=== PATIENT | male | born 1955 | race Caucasian/White ===

== ENCOUNTER → 2022-07-20 | Outpatient (CLI) | payer OTHER ==
[2022-07-20 18:18] LABS: African American GFR (CKD) >90 (>60 ml/min/1.73 sqM); Blood Urea Nitrogen 10 mg/dL (9-20); Non-African American GFR(CKD) >90 (>60 ml/min/1.73 sqM)
--- NOTE | 2022-07-21 07:48 | CT ---
EXAMINATION TYPE: CT chest w con DATE OF EXAM: 07/20/2022 COMPARISON: None HISTORY: SOLITARY PULMONARY NODULE CT DLP: 245.0 mGycm Automated exposure control for dose reduction was used. CONTRAST: CT scan of the chest is performed with IV Contrast, patient injected with 100ml mL of Isovue 300. FINDINGS: LUNGS: Groundglass nodular density right lower lobe measuring 9.3 mm image 22. Additional groundglass nodular density right upper lobe measuring 6 mm image 10. Solid nodule right lower lobe measuring 1. 1 cm image 54. No additional nodules seen. Ript-it-fzwcfmre emphysematous change noted. No focal cons olidation. No evidence of pleural effusion. MEDIASTINUM: There are no greater than 1 cm hilar or mediastinal lymph nodes. No pericardial effusi on is seen. Thoracic aorta is of normal caliber. The heart is not enlarged. UPPER ABDOMEN: No significant abnormality appreciated. OTHER: No additional significant abnormality is seen. IMPRESSION: 1. Solid pulmonary nodule right lower lobe measuring 1.[address] recommended. 2. Additional groundglass nodules right lung could be postinflammatory in nature. Appropriate follow- up is advised.
== END | disposition home or self-care (01) ==
LOC: RADCTMAIN 17:34
PROVIDERS: ATTEND Family Medicine
DX: R91.8 Other nonspecific abnormal finding of lung field (principal)
CPT/HCPCS: 82565; 84520; 71260; 36415; Q9967

== ENCOUNTER → 2022-08-05 | Outpatient (CLI) | payer OTHER ==
--- NOTE | 2022-08-06 11:56 | PE ---
EXAMINATION TYPE: PET CT fusion skull to thigh DATE OF EXAM: 08/05/2022 CLINICAL INDICATION:Male, 66 years old with history of R91.1 Lung Nodule; TECHNIQUE: Following the intravenous administration of 10.2 mCi of F-18 FDG, whole body images are performed from the skull base to the midthigh. Images are reviewed on the computer in the coronal, a xial, and sagittal planes. Reconstructed rotating images are created on independent workstation and reviewed on the computer. A non-contrast CT is performed in conjunction with the PET scan. Glucose level 88 mg/dL COMPARISON: CT 07/20/2022, PET/CT None, FINDINGS: Mediastinal SUV mean is 1.3. Hepatic parenchyma SUV mean is 2.1. SKULL BASE AND NECK: No suspicious FDG activity. Focal radiotracer uptake max SUV 3.6 just posterior to the parotid gland on the left. CHEST, MEDIASTINUM, AND HILAR REGION: * Right lower lobe 1.1 cm pulmonary nodule Max SUV 1.0. * Right upper lobe nodular-like area with max SUV 0.9. * No suspicious FDG activity identified. ABDOMEN AND PELVIS: No suspicious FDG activity. OSSEOUS STRUCTURES: No suspicious FDG activity. OTHER CT: Mild atherosclerosis of the arterial vasculature. IMPRESSION: 1. No suspicious FDG activity within the right lower lobe pulmonary nodule. Continued attention on C T follow-up imaging and/or tissue sampling. 2. Nonspecific radiotracer uptake posterior to the left parotid gland consider dedicated thyroid ult rasound.
== END | disposition home or self-care (01) ==
LOC: RADPETMAIN 10:01
PROVIDERS: ATTEND Internal Medicine
DX: R91.1 Solitary pulmonary nodule (principal)
CPT/HCPCS: 78815; A9552

== ENCOUNTER → 2022-08-24 | Outpatient (CLI) | payer OTHER ==
--- NOTE | 2022-08-24 15:59 | US ---
EXAMINATION TYPE: US thyroid st tissue head/neck DATE OF EXAM: 08/24/2022 COMPARISON: CT chest July 20, 2022 CLINICAL HISTORY: R94.6 ABNORMAL RESULTS OF THYROID FUNCTION STUDIES. Abnormal thyroid function GLAND SIZE: Right Lobe: 5.1 x 2.1 x 1.7 cm Overall Parenchyma: homogenous Left Lobe: 4.2 x 1.6 x 1.4 cm Overall Parenchyma: homogeneous Isthmus Thickness: 0.3 cm NODULES RIGHT: # of nodules measured on right: 0 LEFT: # of nodules measured on left: 0 ISTHMUS: # of nodules measured in the isthmus: 0 Bilateral neck scanned, no evidence of lymphadenopathy. Homogeneous normal-sized thyroid without discrete nodule. The findings correlate with recent CT. IMPRESSION: As above.
== END | disposition home or self-care (01) ==
LOC: RADUSWWP 14:49
PROVIDERS: ATTEND Internal Medicine
DX: R94.6 Abnormal results of thyroid function studies (principal)
CPT/HCPCS: 76536

== ENCOUNTER → 2023-01-30 | Outpatient (CLI) | payer OTHER ==
[2023-01-30 16:18] LABS: African American GFR (CKD) >90 (>60 ml/min/1.73 sqM); Blood Urea Nitrogen 10 mg/dL (9-20); Non-African American GFR(CKD) >90 (>60 ml/min/1.73 sqM)
--- NOTE | 2023-01-31 11:58 | CT ---
EXAMINATION TYPE: CT chest w con CT DLP: 223.90 mGycm, Automated exposure control for dose reduction was used. DATE OF EXAM: 01/30/2023 5:24 PM COMPARISON: CT chest 07/20/2022, PET/CT 08/05/2022 CLINICAL INDICATION:Male, 67 years old with history of R91.8; , f/u lung nodule TECHNIQUE: Multiple axial images were obtained through the chest. Sagittal and coronal reformats were created for review. Contrast used:100 mL of Isovue 300 with IV Contrast Oral contrast used: none. FINDINGS: LUNGS/ PLEURA: Similar right lower lobe 11 mm pulmonary nodule. Right upper lobe groundglass opacity a mildly increased in density on today's exam. This area measures up to 13 x 7 mm. There is parasepta l and centrilobular emphysema changes. No additional pulmonary nodules visualized. AIRWAY: Patent and unremarkable. HEART: Size within normal limits. MEDIASTINUM: No gross evidence of adenopathy. VASCULATURE: No aortic aneurysm. MUSCULOSKELETAL: No acute osseous abnormalities SOFT TISSUES/LYMPH NODES: Unremarkable. LOWER NECK: No significant findings. UPPER ABDOMEN: No significant findings. IMPRESSION: 1. Stable right lower lobe 11 mm pulmonary nodule which did not demonstrate FDG activity on prior PE T. 2. Right upper lobe groundglass opacity appears mildly larger on today's exam. Continued attention o n follow-up imaging in 6-12 months. 3. Mild emphysema changes.
== END | disposition home or self-care (01) ==
LOC: RADCTMAIN 15:32
PROVIDERS: ATTEND Internal Medicine
DX: J43.2 Centrilobular emphysema (principal); R91.8 Other nonspecific abnormal finding of lung field
CPT/HCPCS: 82565; 84520; 71260; 36415; Q9967

== ENCOUNTER → 2023-08-22 | Outpatient (CLI) | payer OTHER ==
[2023-08-22 18:38] LABS: African American GFR (CKD) >90 (>60 ml/min/1.73 sqM); Blood Urea Nitrogen 10 mg/dL (9-20); Non-African American GFR(CKD) >90 (>60 ml/min/1.73 sqM)
--- NOTE | 2023-08-22 19:10 | CT ---
EXAMINATION TYPE: CT chest w con CT DLP: 245.5 mGycm, Automated exposure control for dose reduction was used. DATE OF EXAM: 08/22/2023 6:54 PM COMPARISON: 01/30/2023, 07/20/2022 CT chest, PET/CT 08/05/2022 CLINICAL INDICATION:Male, 67 years old with history of R91.1 ABNORMAL LUNG FIELD; PHH, f/u nodules TECHNIQUE: Multiple axial images were obtained through the chest. Sagittal and coronal reformats were created for review. Contrast used:100 mL of Isovue 300 with IV Contrast (None if empty) Oral contrast used: (None if empty) FINDINGS: LUNGS/ PLEURA: Paraseptal and centrilobular emphysema changes are seen throughout the lungs. Right upper lung nodule measuring 4 mm series 3 image 12, more laterally measuring 4 mm image 10. Posteriorly inferiorly right upper lobe nodule measuring 10 x 9 mm image 23 which appears more solid compared to 01/22/2023. And 07/20/2022. Right middle lobe 2-3 mm pulmonary nodule image 59. Right lower lobe 12 mm pulmonary nodule image 55. Consolidation, pneumothorax or pleural effusion. AIRWAY: Patent and unremarkable. HEART: Size within normal limits. MEDIASTINUM: No gross evidence of adenopathy. VASCULATURE: No aortic aneurysm. MUSCULOSKELETAL: No acute osseous abnormalities SOFT TISSUES/LYMPH NODES: Unremarkable. LOWER NECK: No significant findings. UPPER ABDOMEN: No significant findings. IMPRESSION: Scattered pulmonary nodules most suspicious of which is the right upper lung nodule which is more inf eriorly located and is more solid on today's exam. A right lower lobe pulmonary nodule appears stable . Findings for the right upper lobe pulmonary nodule are now suspicious for malignancy. Consider foll ow-up PET/CT and robotic tissue sampling.
== END | disposition home or self-care (01) ==
LOC: RADCTMAIN 17:18
PROVIDERS: ATTEND Internal Medicine
DX: R91.8 Other nonspecific abnormal finding of lung field (principal)
CPT/HCPCS: 82565; 84520; 71260; 36415; Q9967

== ENCOUNTER → 2023-10-18 | Outpatient (CLI) | payer OTHER ==
--- NOTE | 2023-10-22 23:44 | PE ---
EXAMINATION TYPE: PET CT fusion skull to thigh DATE OF EXAM: 10/18/2023 COMPARISON: 08/22/2023 CT chest Prior PET/CT: 08/05/2022 HISTORY: Multiple lung nodules TECHNIQUE: Following the intravenous administration of 12.06 mCi of F-18 FDG, whole body images are performed from the skull base to the midthigh. Images are reviewed on the computer in the coronal, a xial, and sagittal planes. Reconstructed rotating images are created on independent workstation and reviewed on the computer. A localization and attenuation correction CT is performed in conjunction with the PET scan. DLP: 255.28 mGycm SCAN: Reported as initial. Blood glucose: 89 mg/dL Average Mediastinum SUV: 2.05 Average Liver SUV: 2.5 FINDINGS: NECK: There is a focus of radiotracer in the post left auricular region, image 25, SUV 6.73. THORAX: There is some uptake within a small nodule posterior right upper lung field. Image 92, SUV 1. 18. This may be below the threshold for size for identification. There is some right hilar adenopathy with mild uptake, image 101 SUV 4.18, image 100, SUV 3.32. A rig ht infrahilar lymph node may have some mild uptake, image 107 image 3.23. Infrahilar lymph node on th e right image 116 has SUV of 4.7. No suspicious uptake within the posterior lateral right lung base nodule, image 108, SUV 0.94. ABDOMEN: No abnormal uptake PELVIS: No abnormal uptake OSSEOUS STRUCTURES: There is some uptake within the midthoracic spine vertebral body, image 116, SUV 2.47. LOCALIZATION CT: No suspicious new findings COMPARISON: Faint uptake within the posterior right lung density is increased in SUV over the interva l from 0.83 over the interval. Adenopathy is increased over the interval. IMPRESSION: 1. Uptake within the posterior right upper lung field is increasing but may remain below the threshol d for a suspicious level. 2. The mediastinal and hilar lymphadenopathy appears to be increasing and appears to be within the ra nge for potential neoplasm.. 3. Posterior to the left ear there is a suspicious abnormal intense uptake. Additional workup of this area is recommended.
== END | disposition home or self-care (01) ==
LOC: RADPETMAIN 14:41
PROVIDERS: ATTEND Internal Medicine
DX: R91.8 Other nonspecific abnormal finding of lung field (principal); R59.0 Localized enlarged lymph nodes
CPT/HCPCS: 78815; A9552

== ENCOUNTER → 2024-02-20 | Outpatient (CLI) | payer OTHER ==
[2024-02-20 14:58] LABS: African American GFR (CKD) >90 (>60 ml/min/1.73 sqM); Blood Urea Nitrogen 14 mg/dL (9-20); Non-African American GFR(CKD) >90 (>60 ml/min/1.73 sqM)
--- NOTE | 2024-02-24 22:27 | CT ---
EXAMINATION TYPE: CT chest w con DATE OF EXAM: 02/20/2024 COMPARISON: 08/22/2023, 10/18/2023, 07/20/2022 HISTORY: 68-year-old male R91.8, abnormal lung regan, f/u nodules TECHNIQUE: Contiguous axial scanning of the chest after the administration of 100ml mL of Isovue 300. Coronal/sagittal reconstructions performed. CT DLP: 218.9mGycm. Automatic exposure control utilized for a dose reduction. FINDINGS: The heart is normal size without pericardial effusion. Ectatic aortic root at 3.8 cm. Conventional arch vessel branching anatomy. Stable enlarged 1.8 cm right hilar lymph node. Given stability, a benign reactive etiology is favored . Other smaller hilar nodes remain unchanged as does a right bronchial lymph node measuring 1.2 cm. Moderate centrilobular emphysema. Biapical pleural-parenchymal scarring. * Some groundglass nodularity posterior right apex and 4 mm subpleural nodularity both remain unchan ged. * A 1.1 cm posterior right basilar pulmonary nodule remains unchanged. Previous PET CT showed no hyp ermetabolism here. * An irregular nodule posterior right midlung in the upper lobe measures 2.0 x 1.6 cm. * This is in comparison to: * 2.0 x 1.5 cm on 08/22/2023, * 1.2 x 1.4 cm on 07/20/2022. No consolidation or pleural effusion. Visualized upper abdomen shows gastric fold thickening which may partly be due to nondistention. 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 IMPRESSION: 1. Osteopenia with moderate emphysema. The 2.0 cm posterior right midlung pulmonary nodule remains ribera spicious for neoplasm. It has clearly enlarged compared to older priors such as 07/20/2022 where it me asured 1.4 cm but remains relatively unchanged from more recent priors. Continue close surveillance i f no intervention at this time. 2. A 1.1 cm right basilar pulmonary nodule is unchanged, suspected benign given lack of FDG uptake on prior PET. Attention on ongoing follow-up. 3. Hilar adenopathy measuring up to 1.8 cm remains unchanged back to 2021 probably reactive/post infl ammatory. Ongoing follow-up recommended. 4. Gastric fold thickening; correlate for any symptoms of gastritis.
== END | disposition home or self-care (01) ==
LOC: RADCTMAIN 14:19
PROVIDERS: ATTEND Internal Medicine
DX: J43.2 Centrilobular emphysema (principal); K31.89 Other diseases of stomach and duodenum; M85.80 Other specified disorders of bone density and structure, unspecified site; R91.8 Other nonspecific abnormal finding of lung field; R59.0 Localized enlarged lymph nodes
CPT/HCPCS: 82565; 84520; 71260; 36415; Q9967

== ENCOUNTER 2024-03-20 06:26 | Day surgery (SDC) | payer OTHER ==
[2024-03-18 09:15] VITALS: BMI 20.9
[~2024-03-20 06:26] MED LIST: LACTATED RINGERS 1,000 ML IV SCH
[2024-03-20] MEDS ORDERED: LACTATED RINGERS 1,000 ML IV SCH (06:30)
[2024-03-20] MEDS ORDERED: LIDOCAINE 1% (10MG/ML) FOR IV START INTRADERMA PRN (06:30)
[2024-03-20] MEDS ORDERED: MIDAZOLAM 2 MG/2 ML VIAL IV PRN (07:00)
[2024-03-20] MEDS: LACTATED RINGERS 1,000 ML IV ONE (07:09)
[2024-03-20] MEDS: DEXAMETHASONE SOD PHOSPHATE 4 MG/ML 1 ML VIAL IV ONE (07:22)
[2024-03-20] MEDS: ONDANSETRON 4 MG/2 ML VIAL IVP ONE (07:22)
[2024-03-20] MEDS ORDERED: MIDAZOLAM 2 MG/2 ML VIAL ONE (07:57)
[2024-03-20] MEDS ORDERED: ePHEDrine 50 MG/ML 1 ML VIAL ONE (07:57)
[2024-03-20] MEDS ORDERED: ROCURONIUM 10 MG/ML (5 ML VIAL) IV ONE (07:57)
[2024-03-20] MEDS ORDERED: LIDOCAINE 2% (PF) 20 MG/ML 5 ML VIAL ONE (07:57)
[2024-03-20] MEDS ORDERED: GLYCOPYRROLATE 0.2 MG/ML 2 ML VIAL ONE (07:57)
[2024-03-20] MEDS ORDERED: NEOSTIGMINE 1 MG/ML 10 ML VIAL ONE (07:57)
[2024-03-20] MEDS ORDERED: WATER FOR INJECTION, STERILE 10 ML VIAL IV ONE (07:57)
[2024-03-20] MEDS ORDERED: SUCCINYLCHOLINE CHLORIDE 200 MG/10 ML VIAL IV ONE (07:57)
[2024-03-20] MEDS ORDERED: PHENYLEPHRINE-0.9% NACL SYG 1,000 MCG/10 ML SYRINGE ONE (07:57)
[2024-03-20] MEDS ORDERED: fentaNYL (PF) 50 MCG/ML 2 ML AMP ONE (07:57)
[2024-03-20] MEDS ORDERED: PROPOFOL 10 MG/ML 20 ML VIAL IV ONE (07:57)
--- NOTE | 2024-03-20 10:13 | P.PCN ---
Date of Procedure: 03/20/24 Operative Findings: Operative Findings: Preoperative Diagnosis: Right upper lobe pulmonary nodule, enlarging, 20x16 mm, PET Avid, SUV 1.1 Right lower lobe pulmonary nodule, stable, 11mm, PET non avid Mediastinal lymphadenopathy Postoperative Diagnosis: Right upper lobe pulmonary nodule, enlarging Right lower lobe pulmonary nodule, stable Mediastinal lymphadenopathy Procedure(s) Performed: Flexible bronchoscopy Robotic-assisted bronchoscopy and addition to radial ultrasound evaluation of the right upper lobe pulmonary lobe Robotic-assisted transbronchial needle aspirate, transbronchial biopsies and transbronchial brushing of a right upper lobe pulmonary nodule in addition to a bronchioloalveolar lavage Robotic-assisted transbronchial needle aspirate and transbronchial biopsy of a right lower lobe pulmonary nodule Endobronchial ultrasound TBNA of the station 7 and 10R lymph nodes Anesthesia: MEKAA Surgeon: Justice Ca Estimated Blood Loss (ml): 0 Pathology: other Condition: stable Disposition: same day Operative Findings: A physical exam was performed. Informed consent was obtained from the patient after explaining all the risks (pneumothorax, life threatening bleeding, infection and adverse effects due to medications), benefits and alternatives to the procedure which the patient appeared to understand and so stated. The patient was connected to the monitoring devices. General anesthesia was induced and the patient was intubated by anesthesia. A final timeout was performed and the procedure confirmed by the attending staff bronchoscopist. The bronchoscope was inserted and the airway examined. Examination was essentially within normal limits. Limited respiratory secretions were identified and was suctioned out without any major difficulties. The flexible bronchoscope was removed and the robotic bronchoscope was inserted. Registration was completed. I next guided the robotic bronchoscope using the navigation system into the right posterior segment of the RUL. Once in proper position, the bronchoscope was frozen. The radial EBUS probe was placed through the bronchoscope and confirmed abnormal u/s images vs normal lung. A needle was placed through the working channel and under fluoroscopic guidance, we sampled the area thought to have the mass twice. We then used a cloud biopsy pattern with ultrasound confirmation for 2 additional passes with the needle. U/S evaluation was then used to reconfirm location. Forceps were next introduced through working channel and extended the appropriate distance and 3 transbronchial biopsies were performed using fluoroscopic guidance. The u/s probe was then reinserted to confirm location. When confirmed this process was repeated for a total of 8-10 transbronchial biopsies. After reassessment with EBUS, a brush was placed through the extendable working channel for 1 pass with fluoroscopic guidance. U/S evaluation was then used to confirm location. 40ml of saline was then instilled into the area of the lesion. The robotic bronchoscope was removed and the airway inspected with a flexible bronchoscope and 10 ml of effluent from the BAL was collected. The aspirate was bloody and ultimately declotted and based on that, the sample was discarded. I next guided the robotic bronchoscope using the navigation system into the right lower lobe posterior segment. Once in proper position, the bronchoscope was frozen. The radial EBUS probe was placed through the bronchoscope and confirmed abnormal u/s images vs normal lung. A needle was placed through the working channel and under fluoroscopic guidance, we sampled the area thought to have the mass twice. We then used a cloud biopsy pattern with ultrasound confirmation for 2 additional passes with the needle. U/S evaluation was then used to reconfirm location. Forceps were next introduced through working channel and extended the appropriate distance and 3 transbronchial biopsies were performed using fluoroscopic guidance. The u/s probe was then reinserted to confirm location. When confirmed this process was repeated for a total of 8 transbronchial biopsies. Flex. bronchoscope was inserted and regular suctioning was done. At the completion of the procedure, no residual secretions or bloody material within the airway. The bronchoscope was removed. Endobronchial ultrasound was done with mediastinal lymph node evaluation. A detailed evaluation of the mediastinal lymph nodes was done using endobronchial ultrasound. Based on examination, there was a 10x15 mm subcarinal station 7 lymph nodes , 10x20 mm lymph node in the 11R . Using a 22-gauge vizishot needle, transbronchial needle aspirate of the subcarinal lymph node station 7 and station 11R lymph node was done and a total of 4 passes from the stations was taken. No complications. No bleeding. Right lower lobe Endobronchial ultrasound was removed. Flexible bronchoscope was introduced and have regular suctioning was done and the airway was evacuated from any residual bloody secretions. The flexible bronchoscope was 1 and the patient was extubated and transferred to recovery in stable condition. Chest x-rays to follow. FINDINGS: 1.The airways appeared normal 2 Successful navigation, ultrasonographic identification, and biopsies of right lung pulmonary nodules and previous lymphadenopathy with success lowered sampling of station 7 and station 11 R lymph nodes 3.The the radial ultrasound view was concentric RECOMMENDATIONS: Await pathology and cytology results The referring physician will be alerted to the results when available. The patient was advised to follow up with the referring physician with the biopsy results Patient will be called with results.
[2024-03-20 10:15] VITALS: RESP 16; TEMP 97
--- NOTE | 2024-03-20 11:05 | XR ---
EXAMINATION TYPE: XR chest 1V portable DATE OF EXAM: 03/20/2024 10:23 AM CLINICAL INDICATION:Male, 68 years old with history of POST OP BRONCH; PHH COMPARISON: None TECHNIQUE: XR chest 1V portable Frontal view of the chest. FINDINGS: Lungs/Pleura: There is no evidence of pleural effusion, focal consolidation, or pneumothorax. Pulmonary vascularity: Unremarkable. Heart/mediastinum: Cardiomediastinal silhouette is unremarkable. Musculoskeletal: No acute osseous pathology. IMPRESSION: No evidence for pneumothorax. No acute cardiopulmonary disease/process.
[2024-03-20 11:10] VITALS: BP 126/70; PULSE 51
--- NOTE | 2024-03-20 11:35 | FL ---
EXAMINATION TYPE: FL bronchoscopy DATE OF EXAM: 03/20/[address] HILL DID MULTIPLE SCOPES AND BIOPSIES TO RUQ AND RLQ LUNG. FL TIME 2.296 MINS, DAP 3.2265 Gyc m2. 10 image/s document/s the procedure.
--- NOTE | 2024-03-20 16:50 | CT ---
EXAMINATION TYPE: CT chest wo con DATE OF EXAM: 03/20/2024 COMPARISON: 02/20/2024 HISTORY: ION bronch biopsy lung nodule CT DLP: 334 mGycm. Automated Exposure Control for Dose Reduction was Utilized. TECHNIQUE: CT scan of the thorax is performed without IV contrast. FINDINGS: There are marked emphysematous changes. There are stable small groundglass densities in the right lung apex. The right upper lobe posteriorly there is an ill-defined partially consolidative masslike density. Th e overall dimensions have decreased compared to the prior study however central portion of the densit y appears more masslike and is suspicious for neoplasm. Further evaluation with fine-needle aspiratio n or PET scan is recommended to exclude malignancy. There is a well-circumscribed 12 mm nodule in the right lung base posterolaterally which when compare d to multiple prior CT chest scans is stable. There is a growing left upper lobe nodule which previously measured approximately 5 mm and now measur es 7 mm and clearly is more masslike in appearance. This is also suspicious for neoplasm There is no airspace consolidation . There is no pleural effusion, pleural thickening or pneumothorax. The ascending thoracic aorta is mildly dilated measuring approximately 4 cm. Hilar adenopathy was identified on the prior study but cannot be evaluated on the current study due t o lack of IV contrast material. Limited scanning through the upper abdomen reveals a stable mildly prominent somewhat nodular left ad renal gland. No focal osseous lesions are seen. IMPRESSION: 1. Findings suspicious for neoplasm for nodules in the right upper lobe posteriorly and in the left u pper lobe as described above. Further evaluation is recommended with fine needle aspiration and/or PE T scan. 2. Marked emphysematous changes. 3. Mild aneurysmal dilatation of the ascending thoracic aorta which measures approximately 4 cm.
== END 2024-03-20 11:19 | disposition home or self-care (01) ==
LOC: ORWHC2ENDO 06:26
PROVIDERS: ATTEND Internal Medicine Critical Care Medicine
DX: J84.10 Pulmonary fibrosis, unspecified (principal); I71.21 Aneurysm of the ascending aorta, without rupture; J44.9 Chronic obstructive pulmonary disease, unspecified; F41.9 Anxiety disorder, unspecified; F17.290 Nicotine dependence, other tobacco product, uncomplicated; Z79.899 Other long term (current) drug therapy
CPT/HCPCS: 87798 ×3; 87496; 87498; 87529; 88108; 88305; 88342; 87502; 87634; 88341; 87070; 87205; 87116; 87102; 87206; 87635; 71045; 71250; 31628; 31629; 31623; 31624; 31652; J2250; J0330; J1100; J2710; J2405; J3010; J2704; J2001; J2371; S2900

== ENCOUNTER → 2024-04-04 | Outpatient (CLI) | payer OTHER ==
--- NOTE | 2024-04-04 13:17 | CA ---
Exercise Stress Test Report Name: Rodney Corona Exam Date: 04/04/2024 11:08 Exam Location: [facility] Ht (in): 72 Wt (lb): 155 BSA: 1.91 Ordering Phys: Meng Rivera MD Referring Phys: Miguel Technologist: Jeremie Foy Age: 68 Gender: M : 1955 Procedure CPT: Indications: I20.9 ANGINA PECTORIS, UNSPECIFIED ICD-10 Codes: Patient History: Pre-OP for lung surgery Medications: Meds past 24 hrs: Pretest Chest Pain: STRESS TEST Sha Protocol Exercise Duration (min:sec): 05:[address] Depressions (mm): Angina Score: Zafar Score: Resting HR (bpm): 52 Peak HR (bpm): 111 Resting BP (mmHg): 110 / 80 Peak BP (mmHg): 162 / 59 MPHR: 153 Target HR: 130 % MPHR: 73 METS: 7.1 Total Dose: Peak Dose: Atropine: Double Product: 31409 BP Response: Stress Termination: Dyspnea and leg fatigue Stress Symptoms: Dyspnea Stress Summary: ECG ANALYSIS Resting ECG: Stress ECG: CONCLUSIONS Baseline EKG revealed a normal sinus rhythm without significant ST-T changes. Patient walked on a standard Sha protocol for 5 minutes 44 seconds and achieved a maximum heart rate of 111 bpm. He had fatigue and some discomfort in the leg and shortness of breath and therefore stress test was stopped. There was a lot of artifact and no significant ST segment changes are noted. This is considered a inconclusive stress test with inadequate chronotropic response at nearly 6 minutes of exercise. If ischemia suspected I would recommend a pharmacological stress test probably a Lexiscan study Dr. Nella Cronin MD (Electronically Signed) Final Date: 04 Apr 2024 13:15
== END | disposition home or self-care (01) ==
LOC: RADNMMAIN 10:40
PROVIDERS: ATTEND Thoracic Surgery (Cardiothoracic Vascular Surgery)
DX: Z01.810 Encounter for preprocedural cardiovascular examination (principal); I20.9 Angina pectoris, unspecified; R06.02 Shortness of breath; R53.83 Other fatigue
CPT/HCPCS: 93017

== ENCOUNTER → 2024-04-09 | Outpatient (CLI) | payer MEDICARE, OTHER ==
[2024-04-09 13:52] LABS: Partial Thromboplastin Time 26.5 sec (22.0-30.0)
[2024-04-09 18:28] LABS: Basophils # (A) 0.04 X 10*3/uL (0.00-0.10); Basophils % (A) 0.7 %; Eosinophils # (A) 0.11 X 10*3/uL (0.04-0.35); Eosinophils % (A) 1.8 %; HCT 40.4 % (39.6-50.0); HGB 13.4 g/dL (13.0-17.0); Lymphocytes # (A) 1.84 X 10*3/uL (0.90-5.00); Lymphocytes % (A) 30.7 %; MCH 29.3 pg (27.0-32.0); MCHC 33.2 g/dL (32.0-37.0); MCV 88.2 FL (80.0-97.0); Mean Platelet Volume 10.8 FL (9.5-12.2); Monocytes % (A) 8.3 %; NRBC Per 100 WBC 0 X 10*3/uL (0.00-0.01); Neutrophils # (A) 3.49 X 10*3/uL (1.80-7.70); Neutrophils % (A) 58.2 %; Platelet Count 251 X 10*3/uL (140-440); RBC 4.58 X 10*6/uL (4.40-5.60); RDW 13.3 % (11.5-14.5)
[2024-04-09 19:44] LABS: Blood Urea Nitrogen 7.5 mg/dL (9.0-27.0); Carbon Dioxide 22.6 mmol/L (21.6-31.8); Chloride 104 mmol/L (96-109); Glucose 106 mg/dL (70-110); Potassium 4.1 mmol/L (3.5-5.5); Sodium 137 mmol/L (135-145)
[2024-04-09 19:50] LABS: Appearance,Urine Clear (Clear); Bilirubin,Urine Negative (Negative); Blood,Urine Negative (Negative); Color,Urine Yellow (Yellow); Ketones,Urine Negative (Negative); Nitrite,Urine Negative (Negative); Specific Gravity,Urine 1.014 (1.001-1.030); Urobilinogen,Urine 0.2 E.U./DL
== END | disposition home or self-care (01) ==
LOC: LABPAT 13:11
PROVIDERS: ATTEND Thoracic Surgery (Cardiothoracic Vascular Surgery)
DX: Z01.812 Encounter for preprocedural laboratory examination (principal); C34.11 Malignant neoplasm of upper lobe, right bronchus or lung
CPT/HCPCS: 36415; 80051; 81003; 82565; 82947; 84520; 85025; 85610; 85730; 86850; 86900; 86901; 87086

== ENCOUNTER 2024-04-14 09:14 | Inpatient (IN) | payer OTHER, MEDICARE ==
[2024-04-09 15:31] VITALS: BMI 20.5
[~2024-04-14 09:14] MED LIST changes: +HYDROmorphone 0.5 MG/0.5 ML SYRINGE IVP PRN; -LACTATED RINGERS 1,000 ML IV SCH; +LIDOCAINE 1% (10MG/ML) FOR IV START INTRADERMA PRN; +droPERidol 5 MG/2 ML VIAL IVP ONE
[2024-04-14] MEDS: IV FLUID CONTINUATION 1,000 ML IV ONE ×2 (10:47)
[2024-04-14] MEDS: LACTATED RINGERS 1,000 ML IV SCH (10:49)
[2024-04-14] MEDS: DEXAMETHASONE SOD PHOSPHATE 4 MG/ML 1 ML VIAL IV ONE (11:11)
[2024-04-14] MEDS: ONDANSETRON 4 MG/2 ML VIAL IVP ONE (11:12)
[2024-04-14] MEDS: MIDAZOLAM 2 MG/2 ML VIAL IVP ONE (11:12)
[2024-04-14] MEDS ORDERED: MIDAZOLAM 2 MG/2 ML VIAL ONE (12:11)
[2024-04-14] MEDS ORDERED: NEOSTIGMINE 1 MG/ML 10 ML VIAL ONE (12:11)
[2024-04-14] MEDS ORDERED: ROCURONIUM 10 MG/ML (5 ML VIAL) IV ONE (12:11)
[2024-04-14] MEDS ORDERED: LIDOCAINE 1% INJ 10MG/ML (20 ML MDV) ONE (12:11)
[2024-04-14] MEDS ORDERED: PROPOFOL 10 MG/ML 20 ML VIAL IV ONE (12:11)
[2024-04-14] MEDS ORDERED: GLYCOPYRROLATE 0.2 MG/ML 2 ML VIAL ONE (12:11)
[2024-04-14] MEDS ORDERED: LABETALOL 5 MG/ML VIAL MDV ONE (12:11)
[2024-04-14] MEDS ORDERED: ePHEDrine 50 MG/ML 1 ML VIAL ONE (12:11)
[2024-04-14] MEDS ORDERED: SUCCINYLCHOLINE CHLORIDE 200 MG/10 ML VIAL IV ONE (12:11)
[2024-04-14] MEDS ORDERED: fentaNYL (PF) 50 MCG/ML 2 ML AMP ONE (12:11)
[2024-04-14] MEDS ORDERED: PHENYLEPHRINE-0.9% NACL SYG 1,000 MCG/10 ML SYRINGE ONE (12:11)
[2024-04-14] MEDS ORDERED: HYDROmorphone (PF) 1 MG/ML ONE (12:11)
[2024-04-14] MEDS ORDERED: NALOXONE 0.4 MG/ML 1 ML VIAL IV PRN (12:14)
--- NOTE | 2024-04-14 12:14 | P.ANPRN ---
Procedure Note - Anesthesia - Epidural/Spinal Epidural Time Out Performed: Yes Date of Procedure: 04/14/24 Procedure Start Time: 11:11 Procedure Stop Time: 11:20 Location of Patient: PreOp Indication: Acute Post-Operative Pain, Analgesia, Requested by Surgeon Sedation Type: Sedate with meaningful contact maintained Preparation: Sterile Prep Position: Sitting Catheter: Indwelling Needle Guage: 18 Narrative: Catheter @ T8 level. Test dose 1.5% Lido with epinephrine,3ml---negative S/S. Blood Aspirated: No Pain Paresthesia on Injection Noted: No Events: Uneventful and Well Tolerated
--- NOTE | 2024-04-14 12:50 | P.ANPRN ---
Procedure Note - Anesthesia - Invasive Line Right Time Out Performed: Yes Date of Procedure: 04/14/24 Time of Procedure: 11:21 Location of Patient: PreOp Preparation: Sterile Prep Arterial Line Location: Radial Ultrasound Used: No Needle Guage: 22G Narrative: Invasive line placement per sterile protocol utilized.[id number]
[2024-04-14] MEDS: BUPIVACAINE (PF) 0.5% 30 ML VIAL SQ ONE ×2 (13:36)
[2024-04-14] MEDS: LACTATED RINGERS 1,000 ML IV ONE (14:47)
--- NOTE | 2024-04-14 15:26 | P.OP ---
Date of Procedure: 04/14/24 Preoperative Diagnosis: NSCLC Postoperative Diagnosis: NSCLC Procedure(s) Performed: 1. Bronchoscopy 2. Right assisted thorascopic right upper lobectomy 3. Mediastinal lymph node dissection 4. Intercostal nerve block - 3 levels Anesthesia: MEKAA Surgeon: Meng Rivera Estimated Blood Loss (ml): 50 Pathology: other (RUL, LN Stations 9,8,7,4,11,10) Condition: stable Disposition: PACU Indications for Procedure: Mr Corona is a 68 year-old M with a significant smoking history who has had a known RUL nodule that had increased in size. Robotic biopsy revealed NSCLC. PET/CT revealed some mild uptake in hilar nodes however EBUS for station 7 and 11 was negative for malignancy. Given his adequate lung function and functional status, lobectomy was offered. He was in agreement to proceed. Operative Findings: Robotic stapler mis-fired across bronchus (30mm Green load). Second staple fire successful. Good aeration of middle and upper lobes with upper lobe bronchus clamped. No air leak on water/leak test from bronchial stump at the end of procedure. Description of Procedure: The patient underwent left femoral arterial line placement in the pre-operative suite. He was brought back to the operating room and placed on the table in the supine position. He was intubated with a 39F left sided IHSAN which was confirmed with bronchoscopy. A diagnostic bronchoscopy was also performed which revealed no lesions or abnormalities in the entire tracheo-bronchial tree. There was minimal to no secretions. The patient was then positioned in the left lateral decubitus position and his right chest was prepped and draped in the usual sterile fashion. The double lumen tube position was once again checked using bronchoscopy. A time-out was performed and antibiotics were given. The right lung was isolated. We made a 1cm incision in the 8th intercostal space mid axillary line. The 8mm trocar was inserted into the chest bluntly. The robotic camera was inserted and there was no injury to the lung and there was good lung isolation. We placed then placed 12mm trocars 10cm anteriorly and 10cm posteriorly in the 8th intercostal space. A 4th 8mm port was placed posteriorly in the 7th ICS posteriorly. We placed a 15mm fleet administrative assistant port in between ports 1 and 2 10th ICS above the diaphragm. 0.5% marcaine was used to perform an intercostal nerve block at each level. The Da Abdi Xi robot was then docked. Attention was then turned towards the inferior pulmonary ligament which was taken down using the bipolar cautery. This dissection was carried upward with the bipolar cautery posteriorly along the mediastinal pleura. Level 9,8 and 7 lymph nodes were harvested here. The right mainstem bronchus was identified and followed up into the lung. The jeremiah in between the RUL bronchus and bronchus intermedius was dissected using the bipolar cautery and bluntly. At this point, R4 node was taken above the azygous vein. I then proceeded to divide the anterior mediastinal pleura and carried this dissection upward. At this point the superior pulmonary vein was identified and encircled with a vessel loop taking care to preserve the vein to the middle lobe. A robotic white load was fired across the vein. Next, the truncus arteriosus was circumferentially dissected and encircled with a vessel loop. Here the level 11 node was harvested here. Once again, the robotic white load was fired across this vessel. There was no discernable posterior ascending branch of the PA. Attention was then turned posterior towards the upper lobe bronchus. This was bluntly encircled with a vessel loop and a robotic green load was fired across the upper lobe bronchus. The stapler did misfire here and was removed and sent back to the company. A second robotic green load was successfully fired across the bronchus. Lastly the anterior and posterior fissures were divided using multiple firings of the robotic blue load stapler. The lung was placed in a retrieval bag, and the right chest was irrigated with water and a leak test on the bronchus was performed which was negative. The robot was undocked, the specimen was removed from the chest cavity and a 28F chest tube was placed via the most anterior incision and two lung ventilation was resumed. The patient was extubated and transferred to recovery without air leak.
--- NOTE | 2024-04-14 16:06 | XR ---
EXAMINATION TYPE: XR chest 1V portable DATE OF EXAM: 04/14/2024 3:55 PM CLINICAL INDICATION:Male, 68 years old with history of post lobectomy; [facility] COMPARISON: Chest radiographs from 03/20/2024. TECHNIQUE: XR chest 1V portable Frontal view of the chest. FINDINGS: Lungs/Pleura: Postsurgical changes right lung. There is no evidence of pleural effusion, focal consol idation, or pneumothorax. Pulmonary vascularity: Unremarkable. Heart/mediastinum: Cardiomediastinal silhouette is unremarkable. Musculoskeletal: No acute osseous pathology. Other findings: None Lines/Tubes: Right thoracotomy tube with moderate pneumothorax. IMPRESSION: Postsurgical changes with right thoracotomy tube with moderate pneumothorax.
[2024-04-14] MEDS: HYDROmorphone 0.5 MG/0.5 ML SYRINGE IVP ONE (16:07)
[2024-04-14] MEDS ORDERED: bisacodyL 10 MG SUPP RECTAL PRN (16:15)
[2024-04-14] MEDS ORDERED: IPRATROPIUM-ALBUTEROL 3 ML NEB IH PRN (16:15)
[2024-04-14] MEDS ORDERED: ONDANSETRON 4 MG/2 ML VIAL IVP PRN (16:15)
[2024-04-14 16:51] LABS: Glucose,Whole Blood 111 mg/dL (70-110)
[2024-04-14] MEDS: DEXTROSE 5%-0.45% NACL 1,000 ML IV SCH (16:53)
[2024-04-14] MEDS: IPRATROPIUM-ALBUTEROL 3 ML NEB IH SCH (17:06)
[2024-04-14] MEDS: ROPIVACAINE 250 MG, HYDROMORPHONE (PF) 5 MG in SODIUM CHLORIDE 0.9% 200 ML EPIDURAL PRN (19:00)
[2024-04-14] MEDS ORDERED: MD COMMUNICATION TO PHARMACY 1 EACH MISC PO PRN (19:46)
[2024-04-14] MEDS: CLEVIDIPINE BUTYRATE 25 MG in EMPTY BAG 1 BAG IV SCH (19:48)
--- NOTE | 2024-04-14 20:37 | P.CNPUL ---
History of Present Illness Consult date: 04/14/24 Reason for consult: lung mass History of present illness: 68-year-old male patient with carcinoma of the right upper lobe. Patient is [id number] smoking history. He quit smoking in November 2023. He was found to have a pulmonary nodule in the right upper lobe for which she was undergoing serial CAT scan of the chest. Nodule is progressively getting larger in size and his most recent CAT scan of the chest that was done on 02/24/2024 showed that the right upper lobe pulmonary nodule is measuring 2.0 cm in size and has been enlarged compared to the earlier CAT scan from 07/20/2022 where it was measuring 1.4 cm. PET/CT that was done on 10/22/2023 showed uptake in the right upper lobe pulmonary nodule. Based on this, the patient underwent the robotic bronchoscopy and transbronchial biopsy of the right upper lobe pulmonary nodule and the findings were consistent with for adenocarcinoma. Right lower lobe transbronchial biopsy of a another nodule was inflammatory. Bronchial ultrasound and biopsy of station 11 R lymph node was negative for malignancy. Based on that, the patient was taken to the operating room and the patient underwent a right upper lobectomy and mediastinal lymph node dissection. The patient is currently in the intensive care unit. Postsurgical chest x-ray shows a right-sided chest tube in place along with a small to moderate-sized right apical pneumothorax. The patient continues to have some intermittent airleak. Nevertheless, the patient is hemodynamically stable. He is currently on 60s of oxygen by nasal cannula with a pulse ox of 99%. Pain is under adequate control. He is on clevidipine drip for blood pressure control is also on bronchodilators [id number]. Review of Systems All systems: negative (12 point review of system was done and essentially negative other than things mentioned above in history of present illness. The patient was asymptomatic.) Past Medical History Past Medical History: Cancer (Pulm adenocarcinoma) Additional Past Medical History / Comment(s): Right upper lobe pulmonary adenocarcinoma History of Any Multi-Drug Resistant Organisms: None Reported Past Surgical History: Orthopedic Surgery Additional Past Surgical History / Comment(s): Right knee surgery, fatty tumor removed from thigh, bronchoscopy. Past Anesthesia/Blood Transfusion Reactions: No Reported Reaction Past Psychological History: No Psychological Hx Reported Smoking Status: Current some day smoker Past Alcohol Use History: None Reported Additional Past Alcohol Use History / Comment(s): Quit smoking and vaping but does have an occasional cigar. Past Drug Use History: Marijuana Additional Drug Use History / Comment(s): States quit using Marijuana recently. Instructed to refrain from marijuana use for 24 hrs prior to procedure. Medications and Allergies Home Medications Medication Instructions Recorded Confirmed Type Aspirin [Adult Low Dose Aspirin EC] 81 mg PO DAILY 03/18/24 04/09/24 History Primidone [Mysoline] 200 mg PO QAM 03/18/24 04/09/24 History Propranolol HCl 80 mg PO QAM 03/18/24 04/09/24 History Allergies Allergy/AdvReac Type Severity Reaction Status Date / Time No Known Allergies Allergy Verified 04/14/24 10:43 Physical Exam Vitals: Vital Signs Temp Pulse Pulse Pulse Resp BP BP 04/14/24 19:00 73 9 L 131/77 04/14/24 18:50 86 11 L 131/77 04/14/24 18:40 78 11 L 131/77 04/14/24 18:30 77 8 L 131/77 04/14/24 18:20 79 7 L 131/77 04/14/24 18:10 77 18 131/77 04/14/24 18:00 75 13 120/78 04/14/24 17:30 78 14 120/78 04/14/24 17:10 72 18 120/78 04/14/24 17:00 67 16 124/90 04/14/24 16:50 80 13 144/113 04/14/24 16:40 96.9 F L 81 14 04/14/24 16:38 13 04/14/24 16:15 66 15 04/14/24 16:01 77 16 04/14/24 15:45 68 17 04/14/24 15:32 97.2 F L 82 14 04/14/24 11:54 50 L 16 112/67 04/14/24 11:30 50 L 16 195/90 04/14/24 10:36 96.8 F L 52 L 16 138/71 BP Pulse Ox 04/14/24 19:00 99 04/14/24 18:50 98 04/14/24 18:40 98 04/14/24 18:30 99 04/14/24 18:20 100 04/14/24 18:10 100 04/14/24 18:00 100 04/14/24 17:30 98 04/14/24 17:10 93 L 04/14/24 17:00 92 L 04/14/24 16:50 96 04/14/24 16:40 96 04/14/24 16:38 04/14/24 16:15 144/77 100 04/14/24 16:01 174/93 99 04/14/24 15:45 171/87 99 04/14/24 15:32 180/83 97 04/14/24 11:54 97 04/14/24 11:30 97 04/14/24 10:36 100 Intake and Output 04/14/24 04/14/24 04/14/24 06:59 14:59 22:59 Intake Total 1450 159 Output Total 50 435 Balance 1400 -276 Intake: IV 1450 9 .9NS Pressure Bag 9 Intake, IV Titration 150 Amount Dextrose 5%-0.45% NaCl 1, 150 000 ml @ 50 mls/hr IV . Q20H [facility] Rx#:[id number] Output: Drainage 250 Right Anterior Lateral 250 Chest Urine 145 Pleural Fluid 40 Estimated Blood Loss 50 Other: Weight 68.7 kg ABP, PAP, CO, CI - Last 8 Hours Arterial Blood Pressure 63/48 Arterial Blood Pressure 153/123 Arterial Blood Pressure 99/77 Arterial Blood Pressure 293/293 Arterial Blood Pressure 148/143 Arterial Blood Pressure 95/89 Arterial Blood Pressure 123/73 Arterial Blood Pressure 132/90 The patient appeared well nourished and normally developed. Vital signs as documented. The patient is currently on 60s of oxygen by nasal cannula head exam is unremarkable. No scleral icterus or corneal arcus noted. Neck is without jugular venous distension, thyromegaly, or carotid bruits. Carotid upstrokes are brisk bilaterally. Lungs are clear to auscultation and percussion. Diminished breath sound right lung base and the patient has right-sided chest tube in place. There is evidence of intermittent air leak. Cardiac exam reveals the PMI to be normally sized and situated. Rhythm is regular. First and second heart sounds normal. No murmurs, rubs or gallops. Abdominal exam reveals normal bowel sounds, no masses, no organomegaly and no aortic enlargement. Extremities are nonedematous and both femoral and pedal pulses are normal. Examination of the skin revealed no evidence of significant rashes, suspicious appearing nevi or other concerning lesions. Neurologically, the patient is awake and alert and the patient does not have any focal neurological deficit. Cranial nerves are essentially intact. Results - Laboratory Findings ABG POC Glucose (mg/dL) 111 mg/dL (70-110) H 04/14/24 16:49 POC Glu Brand Sales Consultant Greta Robles 04/14/24 16:49 Abnormal lab findings: Abnormal Labs 04/09/24 04/14/24 13:15 16:49 POC Glucose (mg/dL) 111 H Crossmatch See Detail - Diagnostic Findings Chest x-ray: image reviewed Assessment and Plan Plan: Pulmonary adenocarcinoma, early stage with a 2.0 cm right upper lobe pulmonary nodule and pathology was confirmed by robotic bronchoscopy and biopsy. Endobronchial ultrasound and sampling of the mediastinal lymph nodes were negative for malignancy. The patient underwent a robotic assisted right upper lobe lobectomy and mediastinal lymph node dissection. The patient is currently postop day #0 Acute hypoxic respiratory failure currently on 6 L of oxygen by nasal cannula, expected outcome of surgery Moderate-sized right-sided pneumothorax with continuous airleak, right-sided chest tube is in good location Hypertension History of essential tremors Plan Titrate oxygen flow to maintain saturation above 90% currently on 6 L Incentive spirometer Monitor intermittentlycontinuous airleak Monitor output from the chest tube Daily chest x-rays Aggressive pulmonary toileting Cleviprex for blood pressure control Will continue to follow. Keep the patient in ICU for 24 hours for monitoring.
[2024-04-15] MEDS: SODIUM CHLORIDE 0.9% 500 ML 500 ML IV ONE ×2 (04:04→05:53)
[2024-04-15 04:17] LABS: Glucose,Whole Blood 100 mg/dL (70-110)
[2024-04-15] MEDS: PROPRANOLOL 40 MG TAB PO SCH (05:17)
[2024-04-15] MEDS: PANTOPRAZOLE 40 MG TABLET PO SCH (06:32)
[2024-04-15 06:38] LABS: African American GFR (CKD) >90 (>60 ml/min/1.73 sqM); Anion Gap 4 mmol/L; Blood Urea Nitrogen 12 mg/dL (9-20); Calcium 7.9 mg/dL (8.4-10.2); Carbon Dioxide 25 mmol/L (22-30); Chloride 103 mmol/L (98-107); Glucose 87 mg/dL (74-99); Non-African American GFR(CKD) >90 (>60 ml/min/1.73 sqM); Potassium 4.5 mmol/L (3.5-5.1); Sodium 132 mmol/L (137-145)
--- NOTE | 2024-04-15 07:05 | P.PN ---
Progress Note - Text 04/15/24 630am 68-year-old male status post durotomy. Patient has an epidural with a solution running at 3 cc an hour with a VAS of 2 no complaint of nausea vomiting . Plan to DC of the epidural today
[2024-04-15 07:31] LABS: Basophils % (A) 0 %; Eosinophils % (A) 0 %; HCT 38.2 % (39.0-53.0); HGB 12.2 gm/dL (13.0-17.5); Lymphocytes # (A) 1.5 k/uL (1.0-4.8); Lymphocytes % (A) 15 %; MCH 29.8 pg (25.0-35.0); MCHC 31.9 g/dL (31.0-37.0); MCV 93.3 fL (80.0-100.0); Mean Platelet Volume 9.9; Monocytes # (A) 0.8 k/uL (0-1.0); Monocytes % (A) 8 %; Neutrophils # (A) 7.6 k/uL (1.3-7.7); Neutrophils % (A) 76 %; Platelet Count 214 k/uL (150-450); RDW 12.8 % (11.5-15.5); WBC 10.1 k/uL (3.8-10.6)
--- NOTE | 2024-04-15 07:33 | XR ---
EXAMINATION TYPE: XR chest 1V DATE OF EXAM: 04/15/2024 HISTORY: Status post partial lobectomy right upper lobe. COMPARISON: 04/14/2024 TECHNIQUE: Single view of the chest is submitted. FINDINGS: Right-sided chest tube is in place. Right-sided pneumothorax persists although is much smaller in siz e with apical pleural distance of 1.3 cm versus previous of 6.3 cm. There is right paratracheal massl tanisha density. There appears to be paratracheal adenopathy. Increased density right medial lung base. T he left lung is clear at this time. IMPRESSION: 1. Post lobectomy changes.
[2024-04-15] MEDS: PRIMIDONE 50 MG TAB PO SCH (08:00)
--- NOTE | 2024-04-15 08:07 | P.PN ---
Subjective Progress Note Date: 04/15/24 Principal diagnosis: Lung nodule positive for non-small cell lung carcinoma. Previous medical history of hypertension, essential tremors, previous tobacco dependence with recent cessation of vaping, marijuana use POD #1 bronchoscopy, right assisted thorascopic right upper lobectomy, mediastinal lymph node dissection, intercostal nerve block - 3 levels Postoperative right-sided pneumothorax with continuous airleak, somewhat expected after lobectomy The patient was seen and examined sitting up in bed in the intensive care unit in no acute distress. States expected postsurgical pain controlled with epidural, denies shortness of breath. Remains in sinus rhythm, patient had hypotension most the evening with a blood pressure in the 80s over 50s although mean pressure greater than 60, likely secondary to epidural. Will discontinue epidural and start oral and IV pain medication. Patient currently on 2 L nasal cannula with oxygen saturation in the high 90s, able to achieve 2000 mL on his incentive spirometry. Right-sided chest tube remains present to continuous wall suction with airleak present with expiration. Labs, chest x-ray reviewed. No other new concerns. Objective - Vital Signs Vital signs: Vital Signs Temp 99.1 F 04/15/24 04:00 Pulse 73 04/15/24 07:00 Resp 14 04/15/24 07:00 BP 81/57 04/15/24 07:00 Pulse Ox 94 L 04/15/24 07:00 FiO2 Intake & Output 04/14/24 04/15/24 04/15/24 18:59 06:59 18:59 Intake Total 1556 2301.6 57.333 Output Total 345 905 142 Balance 1211 1396.6 -84.667 Weight 68.7 kg 71.214 kg Intake: IV 1456 1686 53 .9NS Pressure Bag 6 36 3 Dextrose 5%-0.45% NaCl 1, 550 50 000 ml @ 50 mls/hr IV . Q20H [facility] Rx#:[id number] Sodium Chloride 0.9% 500 500 ml 500 ml @ 999 mls/hr IV .Q31M [facility] Rx#:[id number] Sodium Chloride 0.9% 500 500 ml 500 ml @ 999 mls/hr IV .Q31M [facility] Rx#:[id number] ceFAZolin 2 gm In Sodium 50 Chloride 0.9% 50 ml @ 100 mls/hr IVPB ONCE PRN Rx# :[id number] ceFAZolin 2 gm In Sodium 50 Chloride 0.9% 50 ml @ 100 mls/hr IVPB Q8H [facility] Rx#: [id number] Intake, IV Titration 100 135.6 4.333 Amount Dextrose 5%-0.45% NaCl 1, 100 50 000 ml @ 50 mls/hr IV . Q20H [facility] Rx#:[id number] Ropivacaine 250 mg 85.6 4.333 Hydromorphone (Pf) 5 mg In Sodium Chloride 0.9% 200 ml @ Per Protocol EPIDURAL .Q0M PRN Rx#: [id number] Oral 480 Output: Chest Tube Drainage 350 130 Right Anterior Chest 350 130 Drainage 160 90 Right Anterior Lateral 160 90 Chest Urine 95 465 12 Pleural Fluid 40 Estimated Blood Loss 50 Other: Voiding Method Indwelling Catheter ABP, PAP, CO, CI - Last Documented Arterial Blood Pressure 114/89 - Exam CONSTITUTIONAL: Appears comfortable, cooperative, no acute distress RESPIRATORY: Lungs sounds diminished bilaterally. Respirations even, nonlabored. Currently on 2 L with oxygen saturation 98%. Able to achieve 2000 mL on incentive spirometry. Strong cough. CARDIOVASCULAR: S1, S2 present. Regular rate and rhythm, sinus rhythm on telemetry. Palpable peripheral pulses bilaterally. No edema present. No calf pain or tenderness noted. SCDs present. GASTROINTESTINAL: Abdomen soft, nontender, nondistended. Active bowel sounds present 4 quadrants. Tolerating diet GENITOURINARY: Fall present draining clear, yellow urine. Output 30-40 mL/h overnight INTEGUMENTARY: Skin is warm and dry with evidence of good perfusion. Thoracic incision well approximated and covered with dry intact dressing NEUROLOGIC: Cranial nerves II through XII intact MUSKULOSKELETAL: Able to move all extremities, strength equal bilaterally, gait normal PSYCHIATRIC: Alert and oriented to person place and time, appropriate affect, intact judgment and insight INVASIVE LINES AND TUBES: Right pleural chest tubes present and connected to wall suction, air leak present with expiration, 260 mL serosanguineous drainage overnight, 650 mL since surgery. Epidural catheter in place - Allied health notes Allied health notes reviewed: nursing - Labs CBC & Chem 7: 04/15/24 05:28 04/15/24 05:28 Labs: Abnormal Lab Results - Last 24 Hours (Table) 04/09/24 04/14/24 04/15/24 Range/Units 13:15 16:49 05:28 RBC 4.10 L (4.30-5.90) m/uL Hgb 12.2 L (13.0-17.5) gm/dL Hct 38.2 L (39.0-53.0) % Sodium (137-145) mmol/L POC Glucose (mg/dL) 111 H (70-110) mg/dL Calcium (8.4-10.2) mg/dL Crossmatch See Detail 04/15/24 Range/Units 05:28 RBC (4.30-5.90) m/uL Hgb (13.0-17.5) gm/dL Hct (39.0-53.0) % Sodium 132 L (137-145) mmol/L POC Glucose (mg/dL) (70-110) mg/dL Calcium 7.9 L (8.4-10.2) mg/dL Crossmatch - Imaging and Cardiology Chest x-ray: report reviewed, image reviewed Assessment and Plan Assessment: Lung nodule positive for non-small cell lung carcinoma, status post bronchoscopy, right assisted thorascopic right upper lobectomy, mediastinal lymph node dissection History of hypertension, currently hypotensive Essential tremors Previous tobacco dependence, quit smoking cigarettes 3 years ago, quit vaping 3 weeks ago Marijuana use Postoperative right-sided pneumothorax with continuous airleak, somewhat expe cted after lobectomy Plan: Continue right-sided pleural chest tube to continuous wall suction, monitor for resolution of airleak, monitor drainage Wean O2 as tolerated, encourage incentive spirometry use 10 times every hour while awake, bronchodilators per pulmonology Increase activity, ambulate as tolerated Will monitor daily x-rays Start tramadol/Toradol/Tylenol for pain control. Discontinue epidural Discontinue Fall catheter, may bladder scan and straight cath for greater than 300 mL residual Continue home medication regimen GI/DVT prophylaxis Likely will place transfer orders for 3 S. cardiac stepdown unit this afternoon More recommendations to follow
[2024-04-15] MEDS: KETOROLAC 15 MG/ML 1 ML VIAL IVP SCH (08:41)
[2024-04-15] MEDS: traMADol 50 MG TAB PO PRN (08:42)
[2024-04-15 08:57] LABS: RBC Morphology Normal
[2024-04-15] MEDS: ASPIRIN 81 MG PO SCH (09:32)
--- NOTE | 2024-04-15 12:06 | P.PN ---
Subjective Progress Note Date: 04/15/24 68-year-old male patient with carcinoma of the right upper lobe. Patient is [id number] smoking history. He quit smoking in November 2023. He was found to have a pulmonary nodule in the right upper lobe for which she was undergoing serial CAT scan of the chest. Nodule is progressively getting larger in size and his most recent CAT scan of the chest that was done on 02/24/2024 showed that the right upper lobe pulmonary nodule is measuring 2.0 cm in size and has been enlarged compared to the earlier CAT scan from 07/20/2022 where it was measuring 1.4 cm. PET/CT that was done on 10/22/2023 showed uptake in the right upper lobe pulmonary nodule. Based on this, the patient underwent the robotic br onchoscopy and transbronchial biopsy of the right upper lobe pulmonary nodule and the findings were consistent with for adenocarcinoma. Right lower lobe transbronchial biopsy of a another nodule was inflammatory. Bronchial ultrasound and biopsy of station 11 R lymph node was negative for malignancy. Based on that, the patient was taken to the operating room and the patient underwent a right upper lobectomy and mediastinal lymph node dissection. The patient is currently in the intensive care unit. Postsurgical chest x-ray shows a right-sided chest tube in place along with a small to moderate-sized right apical pneumothorax. The patient continues to have some intermittent airleak. Nevertheless, the patient is hemodynamically stable. He is currently on 60s of oxygen by nasal cannula with a pulse ox of 99%. Pain is under adequate control. He is on clevidipine drip for blood pressure control is also on bronchodilators [id number]. 04/15/2024, the patient is postop day #1. The patient is doing well on room air oxygen. The patient underwent a robotic assisted thoracoscopic right upper lobe lobectomy in addition to mediastinal for dissection in addition to intercostal nerve block x 3 levels. The epidural bupivacaine and Dilaudid has been discontinued. Pain is under good control for now. Right-sided chest tube in place. There is positive air leak. Repeat chest x-ray shows adequate expansion of the right lung with a tiny right apical pneumothorax. He is using incentive spirometer and pulling approximately 2000. His blood pressure is stable. He is hemodynamically stable. Surgical wound site is dry clean and intact. The patient WBC count is at 10 with 12.1 platelet count of 214. BUN is at 12 with a creatinine of 0.7 and sodium of 132. Potassium level is at 4.5 and a calcium level is at 7.9. No other significant events overnight. Right-sided chest tube will be kept in place. Total amount of output has been 700 cc since arrival from the operating room. Objective - Vital Signs Vital signs: Vital Signs Temp 98.4 F 04/15/24 08:00 Pulse 70 04/15/24 08:55 Resp 20 04/15/24 08:00 BP 87/59 04/15/24 08:00 Pulse Ox 94 L 04/15/24 08:33 FiO2 21 04/15/24 08:33 Intake & Output 04/14/24 04/15/24 04/15/24 18:59 06:59 18:59 Intake Total 1556 2301.6 116.933 Output Total 345 905 172 Balance 1211 1396.6 -55.067 Weight 68.7 kg 71.214 kg Intake: IV 1456 1686 106 .9NS Pressure Bag 6 36 6 Dextrose 5%-0.45% NaCl 1, 550 100 000 ml @ 50 mls/hr IV . Q20H REPLACED BY [facility] Rx#:[id number] Sodium Chloride 0.9% 500 500 ml 500 ml @ 999 mls/hr IV .Q31M ONE Rx#:[id number] Sodium Chloride 0.9% 500 500 ml 500 ml @ 999 mls/hr IV .Q31M ONE Rx#:[id number] ceFAZolin 2 gm In Sodium 50 Chloride 0.9% 50 ml @ 100 mls/hr IVPB ONCE PRN Rx# :[id number] ceFAZolin 2 gm In Sodium 50 Chloride 0.9% 50 ml @ 100 mls/hr IVPB Q8H REPLACED BY [facility] Rx#: [id number] Intake, IV Titration 100 135.6 10.933 Amount Dextrose 5%-0.45% NaCl 1, 100 50 000 ml @ 50 mls/hr IV . Q20H REPLACED BY [facility] Rx#:[id number] Ropivacaine 250 mg 85.6 10.933 Hydromorphone (Pf) 5 mg In Sodium Chloride 0.9% 200 ml @ Per Protocol EPIDURAL .Q0M PRN Rx#: [id number] Oral 480 Output: Chest Tube Drainage 350 130 Right Anterior Chest 350 130 Drainage 160 90 Right Anterior Lateral 160 90 Chest Urine 95 465 42 Pleural Fluid 40 Estimated Blood Loss 50 Other: Voiding Method Indwelling Catheter Indwelling Catheter ABP, PAP, CO, CI - Last Documented Arterial Blood Pressure 114/89 - Exam The patient appeared well nourished and normally developed. Vital signs as documented. The patient is currently on room air oxygen. Head exam was generally normal. There was no scleral icterus or corneal arcus. Mucous membranes were moist.. No scleral icterus or corneal arcus noted. Neck is without jugular venous distension, thyromegaly, or carotid bruits. Carotid upstrokes are brisk bilaterally. Lungs are clear to auscultation and percussion. Diminished breath sound right lung base and the patient has right-sided chest tube in place. There is evidence persistent air leak. Cardiac exam reveals the PMI to be normally sized and situated. Rhythm is regular. First and second heart sounds normal. No murmurs, rubs or gallops. Abdominal exam reveals normal bowel sounds, no masses, no organomegaly and no aortic enlargement. Extremities are nonedematous and both femoral and pedal pulses are normal. Examination of the skin revealed no evidence of significant rashes, suspicious appearing nevi or other concerning lesions. Neurologically, the patient is awake and alert and the patient does not have any focal neurological deficit. Cranial nerves are essentially intact. - Labs CBC & Chem 7: 04/15/24 05:28 04/15/24 05:28 Labs: Abnormal Lab Results - Last 24 Hours (Table) 04/09/24 04/14/24 04/15/24 Range/Units 13:15 16:49 05:28 RBC 4.10 L (4.30-5.90) m/uL Hgb 12.2 L (13.0-17.5) gm/dL Hct 38.2 L (39.0-53.0) % Sodium (137-145) mmol/L POC Glucose (mg/dL) 111 H (70-110) mg/dL Calcium (8.4-10.2) mg/dL Crossmatch See Detail 04/15/24 Range/Units 05:28 RBC (4.30-5.90) m/uL Hgb (13.0-17.5) gm/dL Hct (39.0-53.0) % Sodium 132 L (137-145) mmol/L POC Glucose (mg/dL) (70-110) mg/dL Calcium 7.9 L (8.4-10.2) mg/dL Crossmatch Assessment and Plan Plan: Pulmonary adenocarcinoma, early stage with a 2.0 cm right upper lobe pulmonary nodule and pathology was confirmed by robotic bronchoscopy and biopsy. Endobronchial ultrasound and sampling of the mediastinal lymph nodes were negative for malignancy. The patient underwent a robotic assisted right upper lobe lobectomy and mediastinal lymph node dissection. The patient is currently postop day #1 Acute hypoxic respiratory failure currently on room air oxygen, Trauma surgery Small apical right-sided pneumothorax with continuous airleak, right-sided chest tube is in good location, output is in order of 700 cc over the past 24 hours Hypertension History of essential tremors Plan Titrate oxygen flow and the patient is currently on room air oxygen Incentive spirometer Monitor airleak Monitor output from the chest tube Daily chest x-rays Aggressive pulmonary toileting Blood pressures under adequate control Will continue to follow.
[2024-04-15] MEDS: ACETAMINOPHEN TAB 325 MG TAB PO PRN (16:18)
[2024-04-16 01:28] LABS: Glucose,Whole Blood 107 mg/dL (70-110)
[2024-04-16] MEDS: METOPROLOL TARTRATE 5 MG/5 ML VIAL IVP STA (01:49)
[2024-04-16] MEDS: DEXTROSE 5% IN WATER 100 ML with AMIODARONE 150 MG IV ONE (01:53)
[2024-04-16 01:59] LABS: Basophils % (A) 0 %; Eosinophils % (A) 0 %; HCT 36.6 % (39.0-53.0); HGB 12.1 gm/dL (13.0-17.5); Lymphocytes # (A) 0.8 k/uL (1.0-4.8); Lymphocytes % (A) 7 %; MCHC 33.1 g/dL (31.0-37.0); MCV 90.6 fL (80.0-100.0); Mean Platelet Volume 9.5; Monocytes # (A) 0.9 k/uL (0-1.0); Monocytes % (A) 8 %; Neutrophils # (A) 10.5 k/uL (1.3-7.7); Neutrophils % (A) 85 %; Platelet Count 184 k/uL (150-450); RBC 4.05 m/uL (4.30-5.90); RDW 12.6 % (11.5-15.5); WBC 12.4 k/uL (3.8-10.6)
[2024-04-16 02:02] LABS: ALT 11 U/L (4-49); AST 27 U/L (17-59); African American GFR (CKD) >90 (>60 ml/min/1.73 sqM); Albumin 3.2 g/dL (3.5-5.0); Alkaline Phosphatase 86 U/L (38-126); Anion Gap 4 mmol/L; Blood Urea Nitrogen 12 mg/dL (9-20); Calcium 8.4 mg/dL (8.4-10.2); Carbon Dioxide 24 mmol/L (22-30); Chloride 101 mmol/L (98-107); Glucose 104 mg/dL (74-99); Magnesium 1.4 mg/dL (1.6-2.3); Non-African American GFR(CKD) >90 (>60 ml/min/1.73 sqM); Potassium 3.9 mmol/L (3.5-5.1); Sodium 129 mmol/L (137-145); Total Protein 5.6 g/dL (6.3-8.2)
[2024-04-16] MEDS: AMIODARONE 360 MG in DEXTROSE 5% IN WATER 200 ML IV ONE (02:10)
[2024-04-16] MEDS ORDERED: Magnesium Replacement Protocol 1 EACH MISC MISCELLANE PRN (02:31)
[2024-04-16] MEDS: MAGNESIUM SULFATE-D5W PMX 1 GM in DEXTROSE/WATER 1 100ML.BAG IVPB SCH (03:52)
[2024-04-16 06:30] LABS: HCT 33.9 % (39.0-53.0); HGB 11.7 gm/dL (13.0-17.5); MCH 30.6 pg (25.0-35.0); MCHC 34.6 g/dL (31.0-37.0); MCV 88.3 fL (80.0-100.0); Mean Platelet Volume 9.2; Platelet Count 184 k/uL (150-450); RBC 3.84 m/uL (4.30-5.90); WBC 12.6 k/uL (3.8-10.6)
[2024-04-16 06:41] LABS: African American GFR (CKD) >90 (>60 ml/min/1.73 sqM); Anion Gap 4 mmol/L; Blood Urea Nitrogen 12 mg/dL (9-20); Calcium 8.5 mg/dL (8.4-10.2); Carbon Dioxide 24 mmol/L (22-30); Chloride 101 mmol/L (98-107); Glucose 122 mg/dL (74-99); Non-African American GFR(CKD) >90 (>60 ml/min/1.73 sqM); Potassium 3.9 mmol/L (3.5-5.1); Sodium 129 mmol/L (137-145)
--- NOTE | 2024-04-16 06:54 | P.PN ---
Progress Note - Text Progress Note Date: 04/16/24 Epidural catheter discontinue on 04/15/2024 afternoon
--- NOTE | 2024-04-16 08:00 | XR ---
EXAMINATION TYPE: XR chest 1V portable DATE OF EXAM: 04/16/2024 HISTORY: Shortness of breath. COMPARISON: 04/15/2024 TECHNIQUE: Single view of the chest is submitted. FINDINGS: Lobectomy change right upper lobe. Chest tube is in place. No residual pneumothorax identified at thi s time. Right perihilar pleural parenchymal density persists as well as right paratracheal prominence The heart is stable. Hilar and mediastinal structures are within normal limits. Degenerative changes are seen of the dorsal spine. IMPRESSION: 1. Lobectomy change right upper lobe. Chest tube is in place. No residual pneumothorax identified at this time. Right perihilar pleural parenchymal density persists as well as right paratracheal promin ence
[2024-04-16] MEDS: AMIODARONE 450 MG in DEXTROSE 5% IN WATER 250 ML IV SCH (08:32)
--- NOTE | 2024-04-16 08:45 | P.PN ---
Subjective Progress Note Date: 04/16/24 Principal diagnosis: Lung nodule positive for non-small cell lung carcinoma. Previous medical history of hypertension, essential tremors, previous tobacco dependence with recent cessation of vaping, marijuana use POD #2 bronchoscopy, right assisted thorascopic right upper lobectomy, mediastinal lymph node dissection, intercostal nerve block - 3 levels Postoperative right-sided pneumothorax with continuous airleak, somewhat expected after lobectomy Atrial fibrillation, not a complication, common occurrence after lung cancer surgery Hyponatremia, likely SIADH, common with cancer Urine retention The patient was seen and examined with Dr. Rivera sitting up in bed in the intensive care unit in no acute distress. States expected postsurgical pain controlled with epidural, denies shortness of breath. Went into atrial fibrillation last night, commonly happens after lung surgery, mag was 1.4. Currently in atrial fibrillation, controlled. Blood pressure still soft but MAPs >60. Patient currently on room air with oxygen saturation in the mid 90s, able to achieve 2000 mL on his incentive spirometry. Right-sided chest tube remains present to continuous wall suction with airleak present with expiration. Labs, chest x-ray reviewed. No other new concerns. Objective - Vital Signs Vital signs: Vital Signs Temp 99.4 F 04/16/24 04:00 Pulse 71 04/16/24 08:25 Resp 21 04/16/24 04:00 BP 97/65 04/16/24 04:00 Pulse Ox 95 04/16/24 04:00 FiO2 21 04/15/24 08:33 Intake & Output 04/15/24 04/16/24 04/16/24 18:59 06:59 18:59 Intake Total 2263.933 Output Total 552 2464 Balance 1711.933 -2464 Weight 71.9 kg Intake: IV 253 .9NS Pressure Bag 3 Dextrose 5%-0.45% NaCl 1, 250 000 ml @ 50 mls/hr IV . Q20H [facility] Rx#:[id number] Intake, IV Titration 10.933 Amount Ropivacaine 250 mg 10.933 Hydromorphone (Pf) 5 mg In Sodium Chloride 0.9% 200 ml @ Per Protocol EPIDURAL .Q0M PRN Rx#: [id number] Oral 2000 Output: Chest Tube Drainage 400 310 Right Anterior Chest 400 310 Urine 152 1550 Straight 1100 Post Void Residual 604 Other: Voiding Method Indwelling Catheter Toilet # Voids 1 2 ABP, PAP, CO, CI - Last Documented Arterial Blood Pressure 114/89 - Exam CONSTITUTIONAL: Appears comfortable, cooperative, no acute distress RESPIRATORY: Lungs sounds diminished bilaterally. Respirations even, nonlabored. Currently on room air saturation 95%. Able to achieve 2000 mL on incentive spirometry. Strong cough. CARDIOVASCULAR: S1, S2 present. Irregular rate and rhythm, controlled atrial fibrillation on telemetry. Palpable peripheral pulses bilaterally. No edema present. No calf pain or tenderness noted. SCDs present. GASTROINTESTINAL: Abdomen soft, nontender, nondistended. Active bowel sounds present 4 quadrants. Tolerating diet GENITOURINARY: Engel discontinued yesterday, patient able to void only 100 mL at a time, still had high residual and was straight cathed x 2 last night INTEGUMENTARY: Skin is warm and dry with evidence of good perfusion. Thoracic incision well approximated and covered with dry intact dressing NEUROLOGIC: Cranial nerves II through XII intact MUSKULOSKELETAL: Able to move all extremities, strength equal bilaterally, gait normal PSYCHIATRIC: Alert and oriented to person place and time, appropriate affect, intact judgment and insight INVASIVE LINES AND TUBES: Right pleural chest tubes present and connected to wall suction, air leak present with expiration, 140 mL serosanguineous drainage overnight, 600 mL in the last 24 hours - Allied health notes Allied health notes reviewed: nursing - Labs CBC & Chem 7: 04/16/24 06:03 04/16/24 06:03 Labs: Abnormal Lab Results - Last 24 Hours (Table) 04/09/24 04/16/24 04/16/24 Range/Units 13:15 01:38 01:38 WBC 12.4 H (3.8-10.6) k/uL RBC 4.05 L (4.30-5.90) m/uL Hgb 12.1 L (13.0-17.5) gm/dL Hct 36.6 L (39.0-53.0) % Neutrophils # 10.5 H (1.3-7.7) k/uL Lymphocytes # 0.8 L (1.0-4.8) k/uL Sodium 129 L (137-145) mmol/L Glucose 104 H (74-99) mg/dL Magnesium 1.4 L (1.6-2.3) mg/dL Total Protein 5.6 L (6.3-8.2) g/dL Albumin 3.2 L (3.5-5.0) g/dL Crossmatch See Detail 04/16/24 04/16/24 Range/Units 06:03 06:03 WBC 12.6 H (3.8-10.6) k/uL RBC 3.84 L (4.30-5.90) m/uL Hgb 11.7 L (13.0-17.5) gm/dL Hct 33.9 L (39.0-53.0) % Neutrophils # (1.3-7.7) k/uL Lymphocytes # (1.0-4.8) k/uL Sodium 129 L (137-145) mmol/L Glucose 122 H (74-99) mg/dL Magnesium (1.6-2.3) mg/dL Total Protein (6.3-8.2) g/dL Albumin (3.5-5.0) g/dL Crossmatch - Imaging and Cardiology Chest x-ray: report reviewed, image reviewed Assessment and Plan Assessment: Lung nodule positive for non-small cell lung carcinoma, status post bronchoscopy, right assisted thorascopic right upper lobectomy, mediastinal lymph node dissection History of hypertension, currently hypotensive Essential tremors Previous tobacco dependence, quit smoking cigarettes 3 years ago, quit vaping 3 weeks ago Marijuana use Postoperative right-sided pneumothorax with continuous airleak, somewhat expected after lobectomy Atrial fibrillation Hyponatremia Urine retention Plan: Right-sided pleural chest tube placed to water seal, monitor for resolution of airleak, monitor drainage Encourage incentive spirometry use 10 times every hour while awake, bronchodilators per pulmonology Increase activity, ambulate as tolerated Will monitor daily x-rays Continue current pain medication regimen May bladder scan for greater than 300 mL residual may replace engel, will start flomax Will place on fluid restriction, salt tabs added Continue amio, will transition to oral Continue home medication regimen GI/DVT prophylaxis More recommendations to follow
--- NOTE | 2024-04-16 14:04 | P.PN ---
Subjective Progress Note Date: 04/16/24 68-year-old male patient with carcinoma of the right upper lobe. Patient is [id number] smoking history. He quit smoking in November 2023. He was found to have a pulmonary nodule in the right upper lobe for which she was undergoing serial CAT scan of the chest. Nodule is progressively getting larger in size and his most recent CAT scan of the chest that was done on 02/24/2024 showed that the right upper lobe pulmonary nodule is measuring 2.0 cm in size and has been enlarged compared to the earlier CAT scan from 07/20/2022 where it was measuring 1.4 cm. PET/CT that was done on 10/22/2023 showed uptake in the right upper lobe pulmonary nodule. Based on this, the patient underwent the robotic br onchoscopy and transbronchial biopsy of the right upper lobe pulmonary nodule and the findings were consistent with for adenocarcinoma. Right lower lobe transbronchial biopsy of a another nodule was inflammatory. Bronchial ultrasound and biopsy of station 11 R lymph node was negative for malignancy. Based on that, the patient was taken to the operating room and the patient underwent a right upper lobectomy and mediastinal lymph node dissection. The patient is currently in the intensive care unit. Postsurgical chest x-ray shows a right-sided chest tube in place along with a small to moderate-sized right apical pneumothorax. The patient continues to have some intermittent airleak. Nevertheless, the patient is hemodynamically stable. He is currently on 60s of oxygen by nasal cannula with a pulse ox of 99%. Pain is under adequate control. He is on clevidipine drip for blood pressure control is also on bronchodilators [id number]. 04/15/2024, the patient is postop day #1. The patient is doing well on room air oxygen. The patient underwent a robotic assisted thoracoscopic right upper lobe lobectomy in addition to mediastinal for dissection in addition to intercostal nerve block x 3 levels. The epidural bupivacaine and Dilaudid has been discontinued. Pain is under good control for now. Right-sided chest tube in place. There is positive air leak. Repeat chest x-ray shows adequate expansion of the right lung with a tiny right apical pneumothorax. He is using incentive spirometer and pulling approximately 2000. His blood pressure is stable. He is hemodynamically stable. Surgical wound site is dry clean and intact. The patient WBC count is at 10 with 12.1 platelet count of 214. BUN is at 12 with a creatinine of 0.7 and sodium of 132. Potassium level is at 4.5 and a calcium level is at 7.9. No other significant events overnight. Right-sided chest tube will be kept in place. Total amount of output has been 700 cc since arrival from the operating room. 04/16/2024, I am seeing the patient for a follow-up. The patient is doing well. No specific complaints. The patient is currently postop day #2. The follow-up chest x-ray from today shows no evidence of any significant pneumothorax. The chest tube was beneficial to waterseal. He is using incentive spirometer. Is putting approximately 2000. At the same time, the patient remains hemodyna mically stable. No significant respiratory distress. No cough or sputum production. Surgical wound site is dry clean and intact. The right-sided chest tube is drained approximately 600 cc over the past 24 hours and she will be kept in place. No other significant events overnight. WBC count of 12.6 with a hemoglobin 11.7 and a platelet count of 184. BUN is 12 with a creatinine of 0.7 and sodium levels at 129. No other significant events otherwise for now. Objective - Vital Signs Vital signs: Vital Signs Temp 99.6 F 04/16/24 08:00 Pulse 71 04/16/24 08:25 Resp 21 04/16/24 08:00 BP 94/76 04/16/24 08:00 Pulse Ox 96 04/16/24 08:00 FiO2 21 04/15/24 08:33 Intake & Output 04/15/24 04/16/24 04/16/24 18:59 06:59 18:59 Intake Total 2263.933 Output Total 552 2464 Balance 1711.933 -2464 Weight 71.9 kg Intake: IV 253 .9NS Pressure Bag 3 Dextrose 5%-0.45% NaCl 1, 250 000 ml @ 50 mls/hr IV . Q20H [facility] Rx#:[id number] Intake, IV Titration 10.933 Amount Ropivacaine 250 mg 10.933 Hydromorphone (Pf) 5 mg In Sodium Chloride 0.9% 200 ml @ Per Protocol EPIDURAL .Q0M PRN Rx#: [id number] Oral 2000 Output: Chest Tube Drainage 400 310 Right Anterior Chest 400 310 Urine 152 1550 Straight 1100 Post Void Residual 604 Other: Voiding Method Indwelling Catheter Toilet Urinal # Voids 1 2 ABP, PAP, CO, CI - Last Documented Arterial Blood Pressure 114/89 - Exam The patient appeared well nourished and normally developed. Vital signs as documented. The patient is currently on room air oxygen. Head exam was generally normal. There was no scleral icterus or corneal arcus. Mucous memb ranes were moist.. No scleral icterus or corneal arcus noted. Neck is without jugular venous distension, thyromegaly, or carotid bruits. Carotid upstrokes are brisk bilaterally. Lungs are clear to auscultation and percussion. Diminished breath sound right lung base and the patient has right-sided chest tube in place. There is no evidence of any air leak in the chest tube has been attached to waterseal. Cardiac exam reveals the PMI to be normally sized and situated. Rhythm is regular. First and second heart sounds normal. No murmurs, rubs or gallops. Abdominal exam reveals normal bowel sounds, no masses, no organomegaly and no aortic enlargement. Extremities are nonedematous and both femoral and pedal pulses are normal. Examination of the skin revealed no evidence of significant rashes, suspicious appearing nevi or other concerning lesions. Neurologically, the patient is awake and alert and the patient does not have any focal neurological deficit. Cranial nerves are essentially intact. - Labs CBC & Chem 7: 04/16/24 06:03 04/16/24 06:03 Labs: Abnormal Lab Results - Last 24 Hours (Table) 04/09/24 04/16/24 04/16/24 Range/Units 13:15 01:38 01:38 WBC 12.4 H (3.8-10.6) k/uL RBC 4.05 L (4.30-5.90) m/uL Hgb 12.1 L (13.0-17.5) gm/dL Hct 36.6 L (39.0-53.0) % Neutrophils # 10.5 H (1.3-7.7) k/uL Lymphocytes # 0.8 L (1.0-4.8) k/uL Sodium 129 L (137-145) mmol/L Glucose 104 H (74-99) mg/dL Magnesium 1.4 L (1.6-2.3) mg/dL Total Protein 5.6 L (6.3-8.2) g/dL Albumin 3.2 L (3.5-5.0) g/dL Crossmatch See Detail 04/16/24 04/16/24 Range/Units 06:03 06:03 WBC 12.6 H (3.8-10.6) k/uL RBC 3.84 L (4.30-5.90) m/uL Hgb 11.7 L (13.0-17.5) gm/dL Hct 33.9 L (39.0-53.0) % Neutrophils # (1.3-7.7) k/uL Lymphocytes # (1.0-4.8) k/uL Sodium 129 L (137-145) mmol/L Glucose 122 H (74-99) mg/dL Magnesium (1.6-2.3) mg/dL Total Protein (6.3-8.2) g/dL Albumin (3.5-5.0) g/dL Crossmatch Assessment and Plan Plan: Pulmonary adenocarcinoma, early stage with a 2.0 cm right upper lobe pulmonary nodule and pathology was confirmed by robotic bronchoscopy and biopsy. Endobronchial ultrasound and sampling of the mediastinal lymph nodes were negative for malignancy. The patient underwent a robotic assisted right upper lobe lobectomy and mediastinal lymph node dissection. The patient is currently postop day #2 Acute hypoxic respiratory failure currently on room air oxygen, Small apical right-sided pneumothorax recovered and the patient has no airleak, right-sided chest tube is in good location, output is in order of 600 cc over the past 24 hours Hypertension History of essential tremors Plan Titrate oxygen flow and the patient is currently on room air oxygen Incentive spirometer Monitor airleak Monitor output from the chest tube and potentially patient's chest tube. Waterseal Daily chest x-rays Aggressive pulmonary toileting Blood pressures under adequate control Will continue to follow.
[2024-04-16] MEDS: SODIUM CHLORIDE TAB 1 GM TAB PO SCH (17:38)
[2024-04-16] MEDS: HEPARIN SODIUM,PORCINE 5,000 UNIT/ML 1 ML VIAL SQ SCH (17:49)
[2024-04-16] MEDS: TAMSULOSIN 0.4 MG CAP.ER.24H PO SCH (17:50)
[2024-04-16] MEDS: AMIODARONE 200 MG TAB PO SCH (21:28)
[2024-04-17] MEDS ORDERED: MAGNESIUM HYDROXIDE 2,400 MG/30 ML CUP PO PRN (07:46)
--- NOTE | 2024-04-17 08:03 | XR ---
EXAMINATION TYPE: XR chest 1V portable DATE OF EXAM: 04/17/2024 HISTORY: Post lobectomy COMPARISON: 04/16/2024 TECHNIQUE: Single view of the chest is submitted. FINDINGS: Right apical chest tube. Right perihilar opacity. No sizable pneumothorax. Hyperinflation left lung. The heart is stable. Hilar and mediastinal structures are within normal limits. Degenerative changes are seen of the dorsal spine. IMPRESSION: 1. Right apical chest tube. Right perihilar opacity. No sizable pneumothorax. Hyperinflation left daniele ng.
[2024-04-17] MEDS: polyethylene glycoL 3350 17 GM POWD.PACK PO SCH (09:12)
--- NOTE | 2024-04-17 09:15 | P.PN ---
Subjective Progress Note Date: 04/17/24 Principal diagnosis: Lung nodule positive for non-small cell lung carcinoma. Previous medical history of hypertension, essential tremors, previous tobacco dependence with recent cessation of vaping, marijuana use POD #3 bronchoscopy, right assisted thorascopic right upper lobectomy, mediastinal lymph node dissection, intercostal nerve block - 3 levels Postoperative right-sided pneumothorax with continuous airleak, somewhat expected after lobectomy Paroxysmal atrial fibrillation, not a complication, common occurrence after lung cancer surgery Hyponatremia, likely SIADH, common with cancer Urine retention requiring reinitiation of Fall catheter The patient was seen and examined sitting up in a recliner on the cardiac stepdown unit in no acute distress. States expected postsurgical pain controlled with current medication regimen, denies shortness of breath. Cur rently in sinus rhythm, hemodynamically stable. Patient currently on room air with oxygen saturation in the high 90s, able to achieve 2500 mL on his incentive spirometry. Right-sided chest tube remains present to waterseal with airleak present only with forceful coughing. Chest x-ray reviewed. No other new concerns. Objective - Vital Signs Vital signs: Vital Signs Temp 97.9 F 04/17/24 04:00 Pulse 86 04/17/24 04:00 Resp 16 04/17/24 04:00 BP 120/83 04/17/24 04:00 Pulse Ox 97 04/17/24 04:00 FiO2 21 04/15/24 08:33 Intake & Output 04/16/24 04/17/24 04/17/24 18:59 06:59 18:59 Intake Total 1340 370 118 Output Total 1930 1570 Balance -590 -1200 118 Weight 71.2 kg Intake: Intake, IV Titration 250 Amount Amiodarone 450 mg In 250 Dextrose 5% in Water 250 ml @ 0.5 MG/MIN 16.667 mls/hr IV .Q15H [facility] Rx#: [id number] Oral 1340 120 118 Output: Chest Tube Drainage 80 20 Right Anterior Chest 80 20 Urine 1850 1550 Other: Voiding Method Indwelling Catheter Indwelling Catheter # Voids 2 ABP, PAP, CO, CI - Last Documented Arterial Blood Pressure 114/89 - Exam CONSTITUTIONAL: Appears comfortable, cooperative, no acute distress RESPIRATORY: Lungs sounds diminished bilaterally. Respirations even, nonlabored. Currently on room air saturation 97%. Able to achieve 2500 mL on incentive spirometry. Strong cough. CARDIOVASCULAR: S1, S2 present. Regular rate and rhythm, sinus rhythm on telemetry. Palpable peripheral pulses bilaterally. No edema present. No calf pain or tenderness noted. SCDs present. GASTROINTESTINAL: Abdomen soft, nontender, nondistended. Active bowel sounds present 4 quadrants. Tolerating diet GENITOURINARY: Fall present draining clear, yellow urine. Output 3400 mL in the last 24 hours INTEGUMENTARY: Skin is warm and dry with evidence of good perfusion. Thoracic incision well approximated and covered with dry intact dressing NEUROLOGIC: Cranial nerves II through XII intact MUSKULOSKELETAL: Able to move all extremities, strength equal bilaterally, gait normal PSYCHIATRIC: Alert and oriented to person place and time, appropriate affect, intact judgment and insight INVASIVE LINES AND TUBES: Right pleural chest tubes present to waterseal, air leak present with forceful coughing, 20 mL serosanguineous drainage in the last 24 hours - Allied health notes Allied health notes reviewed: nursing - Labs CBC & Chem 7: 04/16/24 06:03 04/16/24 06:03 - Imaging and Cardiology Chest x-ray: report reviewed, image reviewed Assessment and Plan Assessment: Lung nodule positive for non-small cell lung carcinoma, status post bronchoscopy, right assisted thorascopic right upper lobectomy, mediastinal lymph node dissection History of hypertension, currently hypotensive Essential tremors Previous tobacco dependence, quit smoking cigarettes 3 years ago, quit vaping 3 weeks ago Marijuana use Postoperative right-sided pneumothorax with continuous airleak, somewhat expe cted after lobectomy Paroxysmal atrial fibrillation, currently in sinus Hyponatremia Urine retention Plan: Continue right-sided pleural chest tube for another 24 hours, monitor for resolution of airleak, monitor drainage Encourage incentive spirometry use 10 times every hour while awake, bronchodilators per pulmonology Increase activity, ambulate as tolerated Will monitor daily x-rays Continue current pain medication regimen Continue Flomax, will leave Fall catheter in place for another 24 hours then will give another voiding trial Continue amio Continue home medication regimen GI/DVT prophylaxis More recommendations to follow
[2024-04-17 11:03] LABS: HCT 35.8 % (39.0-53.0); HGB 11.4 gm/dL (13.0-17.5); MCH 29.5 pg (25.0-35.0); MCHC 31.9 g/dL (31.0-37.0); MCV 92.5 fL (80.0-100.0); Mean Platelet Volume 9.2; Platelet Count 194 k/uL (150-450); RBC 3.87 m/uL (4.30-5.90); RDW 12.7 % (11.5-15.5); WBC 11.3 k/uL (3.8-10.6)
[2024-04-17 11:21] LABS: African American GFR (CKD) >90 (>60 ml/min/1.73 sqM); Anion Gap 8 mmol/L; Blood Urea Nitrogen 14 mg/dL (9-20); Calcium 8.6 mg/dL (8.4-10.2); Carbon Dioxide 22 mmol/L (22-30); Chloride 102 mmol/L (98-107); Glucose 99 mg/dL (74-99); Magnesium 2.2 mg/dL (1.6-2.3); Non-African American GFR(CKD) >90 (>60 ml/min/1.73 sqM); Potassium 4.4 mmol/L (3.5-5.1); Sodium 132 mmol/L (137-145)
[2024-04-17] MEDS: SENNOSIDES-DOCUSATE SODIUM 1 EACH TAB PO SCH (20:48)
--- NOTE | 2024-04-17 23:13 | P.PN ---
Subjective Progress Note Date: 04/17/24 68-year-old male patient with carcinoma of the right upper lobe. Patient is [id number] smoking history. He quit smoking in November 2023. He was found to have a pulmonary nodule in the right upper lobe for which she was undergoing serial CAT scan of the chest. Nodule is progressively getting larger in size and his most recent CAT scan of the chest that was done on 02/24/2024 showed that the right upper lobe pulmonary nodule is measuring 2.0 cm in size and has been enlarged compared to the earlier CAT scan from 07/20/2022 where it was measuring 1.4 cm. PET/CT that was done on 10/22/2023 showed uptake in the right upper lobe pulmonary nodule. Based on this, the patient underwent the robotic br onchoscopy and transbronchial biopsy of the right upper lobe pulmonary nodule and the findings were consistent with for adenocarcinoma. Right lower lobe transbronchial biopsy of a another nodule was inflammatory. Bronchial ultrasound and biopsy of station 11 R lymph node was negative for malignancy. Based on that, the patient was taken to the operating room and the patient underwent a right upper lobectomy and mediastinal lymph node dissection. The patient is currently in the intensive care unit. Postsurgical chest x-ray shows a right-sided chest tube in place along with a small to moderate-sized right apical pneumothorax. The patient continues to have some intermittent airleak. Nevertheless, the patient is hemodynamically stable. He is currently on 60s of oxygen by nasal cannula with a pulse ox of 99%. Pain is under adequate control. He is on clevidipine drip for blood pressure control is also on bronchodilators [id number]. 04/15/2024, the patient is postop day #1. The patient is doing well on room air oxygen. The patient underwent a robotic assisted thoracoscopic right upper lobe lobectomy in addition to mediastinal for dissection in addition to intercostal nerve block x 3 levels. The epidural bupivacaine and Dilaudid has been discontinued. Pain is under good control for now. Right-sided chest tube in place. There is positive air leak. Repeat chest x-ray shows adequate expansion of the right lung with a tiny right apical pneumothorax. He is using incentive spirometer and pulling approximately 2000. His blood pressure is stable. He is hemodynamically stable. Surgical wound site is dry clean and intact. The patient WBC count is at 10 with 12.1 platelet count of 214. BUN is at 12 with a creatinine of 0.7 and sodium of 132. Potassium level is at 4.5 and a calcium level is at 7.9. No other significant events overnight. Right-sided chest tube will be kept in place. Total amount of output has been 700 cc since arrival from the operating room. 04/16/2024, I am seeing the patient for a follow-up. The patient is doing well. No specific complaints. The patient is currently postop day #2. The follow-up chest x-ray from today shows no evidence of any significant pneumothorax. The chest tube was beneficial to waterseal. He is using incentive spirometer. Is putting approximately 2000. At the same time, the patient remains hemodyna mically stable. No significant respiratory distress. No cough or sputum production. Surgical wound site is dry clean and intact. The right-sided chest tube is drained approximately 600 cc over the past 24 hours and she will be kept in place. No other significant events overnight. WBC count of 12.6 with a hemoglobin 11.7 and a platelet count of 184. BUN is 12 with a creatinine of 0.7 and sodium levels at 129. No other significant events otherwise for now. On 04/17/2024, the patient is doing well. No specific complaints. Right-sided chest tube is essentially waterseal. There is some intermittent air leak still present. Chest x-ray from today shows a right-sided pneumothorax which is probably in the order of 10 to 20%. The patient however is feeling great. No specific complaints. Remains on room air oxygen with a pulse ox of 96%. Clinically stable. Hemodynamic stable. Obese, 11 hemoglobin of 11 and a platelet count of 194. Electrolytes are all within normal limits. Renal function is also within normal limits. The patient is postop day #3. Using incentive spirometer, pulling approximately 2500 without having any major difficulties. Will leave the Fall catheter in place. Flomax was also added. Cardiothoracic surgery consult on the case. Objective - Vital Signs Vital signs: Vital Signs Temp 97.9 F 04/17/24 04:00 Pulse 84 04/17/24 09:28 Resp 16 04/17/24 04:00 BP 120/83 04/17/24 04:00 Pulse Ox 97 04/17/24 09:15 FiO2 21 04/15/24 08:33 Intake & Output 04/16/24 04/17/24 04/17/24 18:59 06:59 18:59 Intake Total 1340 370 118 Output Total 1930 1570 Balance -590 -1200 118 Weight 71.2 kg Intake: Intake, IV Titration 250 Amount Amiodarone 450 mg In 250 Dextrose 5% in Water 250 ml @ 0.5 MG/MIN 16.667 mls/hr IV .Q15H [facility] Rx#: [id number] Oral 1340 120 118 Output: Chest Tube Drainage 80 20 Right Anterior Chest 80 20 Urine 1850 1550 Other: Voiding Method Indwelling Catheter Indwelling Catheter # Voids 2 ABP, PAP, CO, CI - Last Documented Arterial Blood Pressure 114/89 - Exam The patient appeared well nourished and normally developed. Vital signs as documented. The patient is currently on room air oxygen. Head exam was generally normal. There was no scleral icterus or corneal arcus. Mucous membra opal were moist.. No scleral icterus or corneal arcus noted. Neck is without jugular venous distension, thyromegaly, or carotid bruits. Carotid upstrokes are brisk bilaterally. Lungs are clear to auscultation and percussion. Diminished breath sound right lung base and the patient has right-sided chest tube in place. There is no evidence of any air leak in the chest tube has been attached to waterseal. Cardiac exam reveals the PMI to be normally sized and situated. Rhythm is regular. First and second heart sounds normal. No murmurs, rubs or gallops. Abdominal exam reveals normal bowel sounds, no masses, no organomegaly and no aortic enlargement. Extremities are nonedematous and both femoral and pedal pulses are normal. Examination of the skin revealed no evidence of significant rashes, suspicious appearing nevi or other concerning lesions. Neurologically, the patient is awake and alert and the patient does not have any focal neurological deficit. Cranial nerves are essentially intact. - Labs CBC & Chem 7: 04/17/24 10:21 04/17/24 10:21 Labs: Abnormal Lab Results - Last 24 Hours (Table) 04/17/24 Range/Units 10:21 WBC 11.3 H (3.8-10.6) k/uL RBC 3.87 L (4.30-5.90) m/uL Hgb 11.4 L (13.0-17.5) gm/dL Hct 35.8 L (39.0-53.0) % Assessment and Plan Plan: Pulmonary adenocarcinoma, early stage with a 2.0 cm right upper lobe pulmonary nodule and pathology was confirmed by robotic bronchoscopy and biopsy. Endobronchial ultrasound and sampling of the mediastinal lymph nodes were negative for malignancy. The patient underwent a robotic assisted right upper lobe lobectomy and mediastinal lymph node dissection. The patient is currently postop day #3 Acute hypoxic respiratory failure currently on room air oxygen To 15% apical right-sided pneumothorax recovered and the patient has intermittent airleak, right-sided chest tube is in good location, Hypertension History of essential tremors Plan Titrate oxygen flow and the patient is currently on room air oxygen Incentive spirometer Monitor airleak currently intermittent Monitor output from the chest tube and potentially patient's chest tube. Will keep the chest tube to waterseal Daily chest x-rays Aggressive pulmonary toileting Blood pressures under adequate control Flomax was not as and will keep the Fall catheter in place Will continue to follow.
--- NOTE | 2024-04-18 09:50 | P.PN ---
Subjective Progress Note Date: 04/18/24 Principal diagnosis: Lung nodule positive for non-small cell lung carcinoma. Previous medical history of hypertension, essential tremors, previous tobacco dependence with recent cessation of vaping, marijuana use POD #4 bronchoscopy, right assisted thorascopic right upper lobectomy, mediastinal lymph node dissection, intercostal nerve block - 3 levels Postoperative right-sided pneumothorax with continuous airleak, somewhat expected after lobectomy Paroxysmal atrial fibrillation, not a complication, common occurrence after lung cancer surgery Hyponatremia, likely SIADH, common with cancer Urine retention requiring reinitiation of Fall catheter The patient was seen and examined with Dr. Rivera sitting up in a recliner on the cardiac stepdown unit in no acute distress. States expected postsurgical pain controlled with current medication regimen, denies shortness of breath. Currently in sinus rhythm, hemodynamically stable. Patient currently on room air with oxygen saturation in the high 90s, able to achieve 3000 mL on his incentive spirometry. Right-sided chest tube remains present to waterseal with no airleak. Chest x-ray reviewed. No other new concerns. Objective - Vital Signs Vital signs: Vital Signs Temp 97.8 F 04/18/24 04:00 Pulse 80 04/18/24 04:00 Resp 17 04/18/24 04:00 BP 103/59 04/18/24 04:00 Pulse Ox 98 04/18/24 04:00 FiO2 21 04/15/24 08:33 Intake & Output 04/17/24 04/18/24 04/18/24 18:59 06:59 18:59 Intake Total 1212 120 716 Output Total 50 Balance 1212 70 716 Weight 71.1 kg Intake: Oral 1212 120 716 Output: Chest Tube Drainage 50 Right Anterior Chest 50 Other: Voiding Method Indwelling Catheter Indwelling Catheter ABP, PAP, CO, CI - Last Documented Arterial Blood Pressure 114/89 - Exam CONSTITUTIONAL: Appears comfortable, cooperative, no acute distress RESPIRATORY: Lungs sounds diminished bilaterally. Respirations even, nonlabored. Currently on room air saturation 98%. Able to achieve 3000 mL on incentive spirometry. Strong cough. CARDIOVASCULAR: S1, S2 present. Regular rate and rhythm, sinus rhythm on telemetry. Palpable peripheral pulses bilaterally. No edema present. No calf pain or tenderness noted. SCDs present. GASTROINTESTINAL: Abdomen soft, nontender, nondistended. Active bowel sounds present 4 quadrants. Tolerating diet GENITOURINARY: Fall present draining clear, yellow urine INTEGUMENTARY: Skin is warm and dry with evidence of good perfusion. Thoracic incision well approximated and covered with dry intact dressing NEUROLOGIC: Cranial nerves II through XII intact MUSKULOSKELETAL: Able to move all extremities, strength equal bilaterally, gait normal PSYCHIATRIC: Alert and oriented to person place and time, appropriate affect, intact judgment and insight INVASIVE LINES AND TUBES: Right pleural chest tubes present to waterseal, no air leak present, 50 mL serosanguineous drainage in the last 24 hours - Allied health notes Allied health notes reviewed: nursing - Labs CBC & Chem 7: 04/17/24 10:21 04/17/24 10:21 Labs: Abnormal Lab Results - Last 24 Hours (Table) 04/17/24 04/17/24 Range/Units 10:21 10:21 WBC 11.3 H (3.8-10.6) k/uL RBC 3.87 L (4.30-5.90) m/uL Hgb 11.4 L (13.0-17.5) gm/dL Hct 35.8 L (39.0-53.0) % Sodium 132 L (137-145) mmol/L - Imaging and Cardiology Chest x-ray: image reviewed Assessment and Plan Assessment: Lung nodule positive for non-small cell lung carcinoma, status post bronchoscopy, right assisted thorascopic right upper lobectomy, mediastinal ly mph node dissection History of hypertension, currently hypotensive Essential tremors Previous tobacco dependence, quit smoking cigarettes 3 years ago, quit vaping 3 weeks ago Marijuana use Postoperative right-sided pneumothorax with continuous airleak, somewhat expected after lobectomy Paroxysmal atrial fibrillation, currently in sinus Hyponatremia Urine retention Plan: Chest tube clamped, will repeat chest x-ray at 10 AM. Likely will discontinue chest tube tomorrow and send home Encourage incentive spirometry use 10 times every hour while awake, bronchodilators per pulmonology Increase activity, ambulate as tolerated Will monitor daily x-rays Continue current pain medication regimen Continue Flomax, will discontinue Fall at midnight for another voiding trial Continue amio Continue home medication regimen GI/DVT prophylaxis More recommendations to follow
--- NOTE | 2024-04-18 10:14 | XR ---
EXAMINATION TYPE: XR chest 1V portable DATE OF EXAM: 04/18/2024 HISTORY: Follow-up pneumothorax COMPARISON: 04/18/2024 TECHNIQUE: Single view of the chest is submitted. FINDINGS: Right-sided chest tube is redemonstrated. A sizable pneumothorax is not identified at this time. Righ t perihilar pleural parenchymal density is unchanged. There is no evidence for focal infiltrate. The heart is stable. Hilar and mediastinal structures are within normal limits. Degenerative changes are seen of the dorsal spine. IMPRESSION: 1. Chronic changes without evidence for acute pulmonary disease.
[2024-04-18 10:19] LABS: HCT 36.4 % (39.0-53.0); HGB 11.5 gm/dL (13.0-17.5); MCH 29.4 pg (25.0-35.0); MCHC 31.7 g/dL (31.0-37.0); MCV 92.7 fL (80.0-100.0); Mean Platelet Volume 9.4; Platelet Count 240 k/uL (150-450); RBC 3.92 m/uL (4.30-5.90); RDW 12.6 % (11.5-15.5); WBC 9.7 k/uL (3.8-10.6)
[2024-04-18 10:40] LABS: African American GFR (CKD) >90 (>60 ml/min/1.73 sqM); Anion Gap 7 mmol/L; Blood Urea Nitrogen 18 mg/dL (9-20); Calcium 8.7 mg/dL (8.4-10.2); Carbon Dioxide 23 mmol/L (22-30); Chloride 104 mmol/L (98-107); Glucose 87 mg/dL (74-99); Non-African American GFR(CKD) 90 (>60 ml/min/1.73 sqM); Potassium 4.1 mmol/L (3.5-5.1); Sodium 134 mmol/L (137-145)
--- NOTE | 2024-04-18 13:39 | XR ---
EXAMINATION TYPE: XR chest 2V DATE OF EXAM: 04/18/2024 COMPARISON: 04/18/2024 HISTORY: Status post lobectomy status post lobectomy TECHNIQUE: Frontal and lateral views of the chest are obtained. FINDINGS: Right-sided chest tube is unchanged in position. There is a small residual pneumothorax noted estimat ed at 10%. Right perihilar mass is unchanged. No evidence for infiltrate. No evidence for atelectasis. Heart size is stable. Mediastinal structures are stable and grossly unremarkable. No evidence for hilar prominence. Degenerative changes dorsal spine. IMPRESSION: 1. Right-sided post lobectomy changes seen without significant interval change. There is a less than 10% right-sided pneumothorax identified
--- NOTE | 2024-04-18 23:08 | P.PN ---
Subjective Progress Note Date: 04/18/24 68-year-old male patient with carcinoma of the right upper lobe. Patient is [id number] smoking history. He quit smoking in November 2023. He was found to have a pulmonary nodule in the right upper lobe for which she was undergoing serial CAT scan of the chest. Nodule is progressively getting larger in size and his most recent CAT scan of the chest that was done on 02/24/2024 showed that the right upper lobe pulmonary nodule is measuring 2.0 cm in size and has been enlarged compared to the earlier CAT scan from 07/20/2022 where it was measuring 1.4 cm. PET/CT that was done on 10/22/2023 showed uptake in the right upper lobe pulmonary nodule. Based on this, the patient underwent the robotic br onchoscopy and transbronchial biopsy of the right upper lobe pulmonary nodule and the findings were consistent with for adenocarcinoma. Right lower lobe transbronchial biopsy of a another nodule was inflammatory. Bronchial ultrasound and biopsy of station 11 R lymph node was negative for malignancy. Based on that, the patient was taken to the operating room and the patient underwent a right upper lobectomy and mediastinal lymph node dissection. The patient is currently in the intensive care unit. Postsurgical chest x-ray shows a right-sided chest tube in place along with a small to moderate-sized right apical pneumothorax. The patient continues to have some intermittent airleak. Nevertheless, the patient is hemodynamically stable. He is currently on 60s of oxygen by nasal cannula with a pulse ox of 99%. Pain is under adequate control. He is on clevidipine drip for blood pressure control is also on bronchodilators [id number]. 04/15/2024, the patient is postop day #1. The patient is doing well on room air oxygen. The patient underwent a robotic assisted thoracoscopic right upper lobe lobectomy in addition to mediastinal for dissection in addition to intercostal nerve block x 3 levels. The epidural bupivacaine and Dilaudid has been discontinued. Pain is under good control for now. Right-sided chest tube in place. There is positive air leak. Repeat chest x-ray shows adequate expansion of the right lung with a tiny right apical pneumothorax. He is using incentive spirometer and pulling approximately 2000. His blood pressure is stable. He is hemodynamically stable. Surgical wound site is dry clean and intact. The patient WBC count is at 10 with 12.1 platelet count of 214. BUN is at 12 with a creatinine of 0.7 and sodium of 132. Potassium level is at 4.5 and a calcium level is at 7.9. No other significant events overnight. Right-sided chest tube will be kept in place. Total amount of output has been 700 cc since arrival from the operating room. 04/16/2024, I am seeing the patient for a follow-up. The patient is doing well. No specific complaints. The patient is currently postop day #2. The follow-up chest x-ray from today shows no evidence of any significant pneumothorax. The chest tube was beneficial to waterseal. He is using incentive spirometer. Is putting approximately 2000. At the same time, the patient remains hemodyna mically stable. No significant respiratory distress. No cough or sputum production. Surgical wound site is dry clean and intact. The right-sided chest tube is drained approximately 600 cc over the past 24 hours and she will be kept in place. No other significant events overnight. WBC count of 12.6 with a hemoglobin 11.7 and a platelet count of 184. BUN is 12 with a creatinine of 0.7 and sodium levels at 129. No other significant events otherwise for now. On 04/17/2024, the patient is doing well. No specific complaints. Right-sided chest tube is essentially waterseal. There is some intermittent air leak still present. Chest x-ray from today shows a right-sided pneumothorax which is probably in the order of 10 to 20%. The patient however is feeling great. No specific complaints. Remains on room air oxygen with a pulse ox of 96%. Clinically stable. Hemodynamic stable. Obese, 11 hemoglobin of 11 and a platelet count of 194. Electrolytes are all within normal limits. Renal function is also within normal limits. The patient is postop day #3. Using incentive spirometer, pulling approximately 2500 without having any major difficulties. Will leave the Fall catheter in place. Flomax was also added. Cardiothoracic surgery consult on the case. 04/18/2024, the patient's chest tube was clamped. The morning chest x-ray showed no evidence of any acute pneumothorax. It showed postsurgical changes. After being capped, the repeat chest x-ray showed less than 10% pneumothorax on the right. The patient remains hemodynamically stable on room air oxygen. Afebrile. No nausea vomiting. No chest pain. The white cell count is 9.7 with a hemoglobin of 11.5 and a platelet count of 240. BUN is 18 with a creatinine of 0.8 and sodium levels at 134. No issues with pain. No other complaints otherwise for now. The patient is currently postop day #4. He was in the sinus parameter. Fall catheter still in place. Objective - Vital Signs Vital signs: Vital Signs Temp 97.1 F L 04/18/24 08:00 Pulse 72 04/18/24 08:00 Resp 18 04/18/24 08:00 BP 125/61 04/18/24 08:00 Pulse Ox 97 04/18/24 08:00 FiO2 21 04/15/24 08:33 Intake & Output 04/17/24 04/18/24 04/18/24 18:59 06:59 18:59 Intake Total 1212 120 716 Output Total 50 Balance 1212 70 716 Weight 71.1 kg Intake: Oral 1212 120 716 Output: Chest Tube Drainage 50 Right Anterior Chest 50 Other: Voiding Method Indwelling Catheter Indwelling Catheter Indwelling Catheter ABP, PAP, CO, CI - Last Documented Arterial Blood Pressure 114/89 - Exam The patient appeared well nourished and normally developed. Vital signs as do cumented. The patient is currently on room air oxygen. Head exam was generally normal. There was no scleral icterus or corneal arcus. Mucous membranes were moist.. No scleral icterus or corneal arcus noted. Neck is without jugular venous distension, thyromegaly, or carotid bruits. Carotid upstrokes are brisk bilaterally. Lungs are clear to auscultation and percussion. Diminished breath sound right lung base and the patient has right-sided chest tube in place. There is no evidence of any air leak in the chest tube has been attached to waterseal. Cardiac exam reveals the PMI to be normally sized and situated. Rhythm is regular. First and second heart sounds normal. No murmurs, rubs or gal lops. Abdominal exam reveals normal bowel sounds, no masses, no organomegaly and no aortic enlargement. Extremities are nonedematous and both femoral and pedal pulses are normal. Examination of the skin revealed no evidence of significant rashes, suspicious appearing nevi or other concerning lesions. Neurologically, the patient is awake and alert and the patient does not have any focal neurologi yojana deficit. Cranial nerves are essentially intact. - Labs CBC & Chem 7: 04/18/24 09:31 04/18/24 09:31 Labs: Abnormal Lab Results - Last 24 Hours (Table) 04/18/24 04/18/24 Range/Units : 09:31 RBC 3.92 L (4.30-5.90) m/uL Hgb 11.5 L (13.0-17.5) gm/dL Hct 36.4 L (39.0-53.0) % Sodium 134 L (137-145) mmol/L Assessment and Plan Plan: Pulmonary adenocarcinoma, early stage with a 2.0 cm right upper lobe pulmonary nodule and pathology was confirmed by robotic bronchoscopy and biopsy. Endobronchial ultrasound and sampling of the mediastinal lymph nodes were negative for malignancy. The patient underwent a robotic assisted right upper lobe lobectomy and mediastinal lymph node dissection. The patient is currently postop day #4 Acute hypoxic respiratory failure currently on room air oxygen Less than % apical right-sided pneumothorax recovered and the patient has no airleak, right-sided chest tube is in good location and the tube is clamped at this point in time. Hypertension History of essential tremors Plan Titrate oxygen flow and the patient is currently on room air oxygen Incentive spirometer Will likely remove the chest tube today. Daily chest x-rays Aggressive pulmonary toileting Blood pressures under adequate control Flomax was not as and will keep the Fall catheter in place Will continue to follow.
[2024-04-19 11:26] LABS: HCT 34.1 % (39.0-53.0); HGB 10.9 gm/dL (13.0-17.5); MCH 29.7 pg (25.0-35.0); MCHC 32.1 g/dL (31.0-37.0); MCV 92.5 fL (80.0-100.0); Mean Platelet Volume 8.6; Platelet Count 277 k/uL (150-450); RBC 3.68 m/uL (4.30-5.90); RDW 12.3 % (11.5-15.5); WBC 7.8 k/uL (3.8-10.6)
[2024-04-19 11:52] LABS: African American GFR (CKD) >90 (>60 ml/min/1.73 sqM); Anion Gap 5 mmol/L; Blood Urea Nitrogen 18 mg/dL (9-20); Calcium 8.4 mg/dL (8.4-10.2); Carbon Dioxide 25 mmol/L (22-30); Chloride 103 mmol/L (98-107); Glucose 88 mg/dL (74-99); Non-African American GFR(CKD) >90 (>60 ml/min/1.73 sqM); Potassium 3.7 mmol/L (3.5-5.1); Sodium 133 mmol/L (137-145)
--- NOTE | 2024-04-19 13:29 | P.PN ---
Subjective Progress Note Date: 04/19/24 Principal diagnosis: We remove his right pleural chest tube today. Follow-up chest x-ray 2 hours after removal. Encourage incentive spirometry use 10 times every hour while awake, bronchodilators per pulmonology. Increase activity, ambulate as tolerated. Will monitor daily chest x-rays. Continue current pain medication regimen. Continue Flomax. Continue amiodarone. Continue home medication regimen. GI/DVT prophylaxis. More recommendations to follow based on patient's clinical course. Lung nodule positive for non-small cell lung carcinoma, status post bronchoscopy, right assisted thorascopic right upper lobectomy, mediastinal lymph node dissection History of hypertension, currently hypotensive Essential tremors Previous tobacco dependence, quit smoking cigarettes 3 years ago, quit vaping 3 weeks ago Marijuana use Postoperative right-sided pneumothorax with continuous airleak, somewhat expected after lobectomy Paroxysmal atrial fibrillation, currently in sinus Hyponatremia Urine retention Objective - Vital Signs Vital signs: Vital Signs Temp 97.6 F 04/19/24 08:21 Pulse 78 04/19/24 12:51 Resp 16 04/19/24 12:09 BP 136/76 04/19/24 12:09 Pulse Ox 96 04/19/24 12:09 FiO2 21 04/15/24 08:33 Intake & Output 04/18/24 04/19/24 04/19/24 18:59 06:59 18:59 Intake Total 1192 250 Output Total 1100 500 Balance 92 -500 250 Weight 70.3 kg Intake: IV 10 Invasive Line 2 10 Oral 1192 240 Output: Urine 1100 500 Uretheral (Fall) 1100 Other: Voiding Method Indwelling Catheter Indwelling Catheter Indwelling Catheter # Voids 1 ABP, PAP, CO, CI - Last Documented Arterial Blood Pressure 114/89 - Labs CBC & Chem 7: 04/19/24 11:02 04/19/24 11:02 Labs: Abnormal Lab Results - Last 24 Hours (Table) 04/19/24 04/19/24 Range/Units 11:02 11:02 RBC 3.68 L (4.30-5.90) m/uL Hgb 10.9 L (13.0-17.5) gm/dL Hct 34.1 L (39.0-53.0) % Sodium 133 L (137-145) mmol/L
--- NOTE | 2024-04-19 13:34 | XR ---
EXAMINATION TYPE: XR chest 2V DATE OF EXAM: 04/19/2024 6:24 AM CLINICAL INDICATION:Male, 68 years old with history of post lobectomy; [facility] COMPARISON: 04/18/2024 and before TECHNIQUE: XR chest 2V. Frontal and lateral views of the chest.. FINDINGS: Right-sided large-bore chest tube with tip at the medial right lung apex unchanged. There appears to be slightly greater right chest wall soft tissue emphysema than before, though this was not entirely included on the prior exam. No significant pneumothorax is visualized. Ovoid nodular density over the right midlung zone appears unchanged. Unusual appearing larger ovoid o pacity along the right mid to upper mediastinal margin is again seen and similar to recent priors how ever is a relatively recent development since 03/20/2024. Left lung and pleural space remain clear. Osseous structures grossly unchanged. IMPRESSION: * Unchanged cardiopulmonary status. Right perihilar densities/opacities are grossly stable, though t he exact cause is indeterminate. When clinically possible, recommend further assessment with contrast CT chest. * Right chest tube unchanged. * No significant visible pneumothorax. * Suggestion of slightly increased soft tissue emphysema in the right chest wall.
--- NOTE | 2024-04-19 13:52 | XR ---
EXAMINATION TYPE: XR chest 1V portable DATE OF EXAM: 04/19/2024 COMPARISON: 04/19/2024 HISTORY: Chest tube removal TECHNIQUE: Single frontal view of the chest is obtained. FINDINGS: There is a approximately 20% residual pneumothorax. No mediastinal deviation. Lobulated de nsity in the right hilum and consolidation the right lung. Diffuse subcutaneous air\emphysema. Left l john is clear. Heart size stable. Osseous structures unchanged. IMPRESSION: 1. Chest tube removal of approximately 20% pneumothorax. No mediastinal deviation. 2. Lobulated right perihilar and areas of subsegmental consolidation and nodularity in the right lung are stable.
--- NOTE | 2024-04-19 19:27 | P.PN ---
Subjective Progress Note Date: 04/19/24 68-year-old male patient with carcinoma of the right upper lobe. Patient is [id number] smoking history. He quit smoking in November 2023. He was found to have a pulmonary nodule in the right upper lobe for which she was undergoing serial CAT scan of the chest. Nodule is progressively getting larger in size and his most recent CAT scan of the chest that was done on 02/24/2024 showed that the right upper lobe pulmonary nodule is measuring 2.0 cm in size and has been enlarged compared to the earlier CAT scan from 07/20/2022 where it was measuring 1.4 cm. PET/CT that was done on 10/22/2023 showed uptake in the right upper lobe pulmonary nodule. Based on this, the patient underwent the robotic br onchoscopy and transbronchial biopsy of the right upper lobe pulmonary nodule and the findings were consistent with for adenocarcinoma. Right lower lobe transbronchial biopsy of a another nodule was inflammatory. Bronchial ultrasound and biopsy of station 11 R lymph node was negative for malignancy. Based on that, the patient was taken to the operating room and the patient underwent a right upper lobectomy and mediastinal lymph node dissection. The patient is currently in the intensive care unit. Postsurgical chest x-ray shows a right-sided chest tube in place along with a small to moderate-sized right apical pneumothorax. The patient continues to have some intermittent airleak. Nevertheless, the patient is hemodynamically stable. He is currently on 60s of oxygen by nasal cannula with a pulse ox of 99%. Pain is under adequate control. He is on clevidipine drip for blood pressure control is also on bronchodilators [id number]. 04/15/2024, the patient is postop day #1. The patient is doing well on room air oxygen. The patient underwent a robotic assisted thoracoscopic right upper lobe lobectomy in addition to mediastinal for dissection in addition to intercostal nerve block x 3 levels. The epidural bupivacaine and Dilaudid has been discontinued. Pain is under good control for now. Right-sided chest tube in place. There is positive air leak. Repeat chest x-ray shows adequate expansion of the right lung with a tiny right apical pneumothorax. He is using incentive spirometer and pulling approximately 2000. His blood pressure is stable. He is hemodynamically stable. Surgical wound site is dry clean and intact. The patient WBC count is at 10 with 12.1 platelet count of 214. BUN is at 12 with a creatinine of 0.7 and sodium of 132. Potassium level is at 4.5 and a calcium level is at 7.9. No other significant events overnight. Right-sided chest tube will be kept in place. Total amount of output has been 700 cc since arrival from the operating room. 04/16/2024, I am seeing the patient for a follow-up. The patient is doing well. No specific complaints. The patient is currently postop day #2. The follow-up chest x-ray from today shows no evidence of any significant pneumothorax. The chest tube was beneficial to waterseal. He is using incentive spirometer. Is putting approximately 2000. At the same time, the patient remains hemodyna mically stable. No significant respiratory distress. No cough or sputum production. Surgical wound site is dry clean and intact. The right-sided chest tube is drained approximately 600 cc over the past 24 hours and she will be kept in place. No other significant events overnight. WBC count of 12.6 with a hemoglobin 11.7 and a platelet count of 184. BUN is 12 with a creatinine of 0.7 and sodium levels at 129. No other significant events otherwise for now. On 04/17/2024, the patient is doing well. No specific complaints. Right-sided chest tube is essentially waterseal. There is some intermittent air leak still present. Chest x-ray from today shows a right-sided pneumothorax which is probably in the order of 10 to 20%. The patient however is feeling great. No specific complaints. Remains on room air oxygen with a pulse ox of 96%. Clinically stable. Hemodynamic stable. Obese, 11 hemoglobin of 11 and a platelet count of 194. Electrolytes are all within normal limits. Renal function is also within normal limits. The patient is postop day #3. Using incentive spirometer, pulling approximately 2500 without having any major difficulties. Will leave the Fall catheter in place. Flomax was also added. Cardiothoracic surgery consult on the case. 04/18/2024, the patient's chest tube was clamped. The morning chest x-ray showed no evidence of any acute pneumothorax. It showed postsurgical changes. After being capped, the repeat chest x-ray showed less than 10% pneumothorax on the right. The patient remains hemodynamically stable on room air oxygen. Afebrile. No nausea vomiting. No chest pain. The white cell count is 9.7 with a hemoglobin of 11.5 and a platelet count of 240. BUN is 18 with a creatinine of 0.8 and sodium levels at 134. No issues with pain. No other complaints otherwise for now. The patient is currently postop day #4. He was in the sinus parameter. Fall catheter still in place. On today's evaluation of 04/19/2024, the patient is being seen for a follow-up. The patient has no significant complaints. The patient is currently postop day #5. The right-sided chest tube has been clamped and the follow-up chest x-ray that was done today showed a 15% pneumothorax in the right apex post chest tube removal. Nevertheless, the patient remains clinically and hemodynamically stable. His pulse ox on room air is in order of 98%. He continues to use incentive spirometer. He is also on bronchodilators. He is ambulating. No other significant events overnight. No hypotension. No pleurisy. No hemoptysis. Objective - Vital Signs Vital signs: Vital Signs Temp 97.6 F 04/19/24 08:21 Pulse 80 04/19/24 09:35 Resp 18 04/19/24 08:21 BP 111/71 04/19/24 08:21 Pulse Ox 95 04/19/24 04:00 FiO2 21 04/15/24 08:33 Intake & Output 04/18/24 04/19/24 04/19/24 18:59 06:59 18:59 Intake Total 1192 250 Output Total 1100 500 Balance 92 -500 250 Weight 70.3 kg Intake: IV 10 Invasive Line 2 10 Oral 1192 240 Output: Urine 1100 500 Uretheral (Fall) 1100 Other: Voiding Method Indwelling Catheter Indwelling Catheter Indwelling Catheter # Voids 1 ABP, PAP, CO, CI - Last Documented Arterial Blood Pressure 114/89 - Exam The patient appeared well nourished and normally developed. Vital signs as documented. The patient is currently on room air oxygen. Head exam was generally normal. There was no scleral icterus or corneal arcus. Mucous membranes were moist.. No scleral icterus or corneal arcus noted. Neck is without jugular venous distension, thyromegaly, or carotid bruits. Carotid upstrokes are brisk bilaterally. Lungs are clear to auscultation and percussion. Diminished breath sound right lung base and the patient has right-sided chest tube was removed. Cardiac exam reveals the PMI to be normally sized and s ituated. Rhythm is regular. First and second heart sounds normal. No murmurs, rubs or gallops. Abdominal exam reveals normal bowel sounds, no masses, no organomegaly and no aortic enlargement. Extremities are nonedematous and both femoral and pedal pulses are normal. Examination of the skin revealed no evidence of significant rashes, suspicious appearing nevi or other concerning lesions. Neurologically, the patient is awake and alert and the patient does not have any focal neurological deficit. Cranial nerves are essentially intact. - Labs CBC & Chem 7: 04/19/24 11:02 04/19/24 11:02 Labs: Abnormal Lab Results - Last 24 Hours (Table) 04/19/24 04/19/24 Range/Units 11:02 11:02 RBC 3.68 L (4.30-5.90) m/uL Hgb 10.9 L (13.0-17.5) gm/dL Hct 34.1 L (39.0-53.0) % Sodium 133 L (137-145) mmol/L Assessment and Plan Plan: Pulmonary adenocarcinoma, early stage with a 2.0 cm right upper lobe pulmonary nodule and pathology was confirmed by robotic bronchoscopy and biopsy. Endobronchial ultrasound and sampling of the mediastinal lymph nodes were negative for malignancy. The patient underwent a robotic assisted right upper lobe lobectomy and mediastinal lymph node dissection. The patient is currently postop day # 5 Acute hypoxic respiratory failure currently on room air oxygen 10-15% apical right-sided pneumothorax post chest tube removal and the patient is clinically asymptomatic Hypertension History of essential tremors Plan Clinically and hemodynamically stable Oxygenation is stable currently on room air oxygen Incentive spirometer Chest tubes removed Repeat another chest x-ray in the morning Aggressive pulmonary toileting Blood pressures under adequate control Flomax was not as and will keep the Fall catheter in place Will continue to follow.
--- NOTE | 2024-04-20 07:42 | XR ---
EXAMINATION TYPE: XR chest 2V DATE OF EXAM: 04/20/2024 6:25 AM CLINICAL INDICATION:Male, 68 years old with history of Status post right upper lobectomy; [facility] COMPARISON: Chest radiographs from 04/19/2024. 03/20/2024. TECHNIQUE: XR chest 2V Frontal and lateral views of the chest. FINDINGS: Lungs/Pleura: Small right pneumothorax with visceral pleural line identified. There is consolidation changes on the right suprahilar region possibly relating to atelectasis. There is no evidence of pleu ral effusion, focal consolidation, or left pneumothorax . Pulmonary vascularity: Unremarkable. Heart/mediastinum: Cardiomediastinal silhouette is unremarkable. Musculoskeletal: No acute osseous pathology. Subcutaneous emphysema along the right lateral chest wall. IMPRESSION: Persistent small right pneumothorax with subcutaneous emphysema.
[2024-04-20 08:26] VITALS: BP 151/77; RESP 16; TEMP 98
[2024-04-20 09:00] VITALS: PULSE 70
--- NOTE | 2024-04-20 10:49 | P.DS ---
Providers Date of admission: 04/14/24 10:17 Expected date of discharge: 04/20/24 Attending physician: Meng Rivera MD Consults: 04/14/24 16:15 Consult Physician Routine Consulting Provider: Justice Ca Consult Reason/Comments: post lobectomy Do you want consulting provider notified?: Already Contacted [facility] [place] [facility] Course: FINAL DIAGNOSIS: Lung nodule positive for non-small cell lung carcinoma, status post bronchoscopy, right assisted thorascopic right upper lobectomy, mediastinal lymph node dissection History of hypertension, currently hypotensive Essential tremors Previous tobacco dependence, quit smoking cigarettes 3 years ago, quit vaping 3 weeks ago Marijuana use Postoperative right-sided pneumothorax with continuous airleak, somewhat expected after lobectomy Paroxysmal atrial fibrillation, currently in sinus Hyponatremia Urine retention PRINCIPAL PROCEDURE: 1. Bronchoscopy 2. Robotic assisted thoracoscopic right upper lobectomy 3. Mediastinal lymph node dissection 4. Intercostal nerve block 3 levels HISTORY OF PRESENT ILLNESS: This is a 68-year-old gentleman who follows on an outpatient basis with Dr. Maikol Sainz for his primary care and with Dr. Niharika Zhong for his pulmonary care. The patient has history of pulmonary nodules and he was undergoing surveillance of these nodules. On March 20, 2024 the patient had a repeat CT scan of the chest which revealed that the nodule in the right upper lobe had increased in size to 12 mm. For further evaluation he underwent a PET/CT scan which revealed minimal SUV uptake of 1.18 in the nodule but there was some hilar nodes on the PET/CT that had an FDG of 4. Due to the findings on the CT scan of the chest and on the PET/CT scan he was recommended to undergo a robotic assisted biopsy which was completed on March 20, 2024 which demonstrated non-small cell lung carcinoma. The EBUS of level 11 R and 7 were negative. Subsequently due to the above mentioned findings he was referred to Dr. Meng Rivera from cardiothoracic surgery for further evaluation and treatment recommendations. The patient met with Dr. Rivera, treatment options were discussed including right robotic assisted thoracoscopic right upper lobectomy with mediastinal lymph node dissection. Risks and benefits of surgery discussed and knowing and understanding the risks the patient wished to proceed with the surgical option. HOSPITAL COURSE: The patient was brought to the hospital on 6/10/24, taken to the preoperative area, prepared in the usual fashion, and subsequently taken to the operating room where Dr. Rivera performed robotic assisted right upper lobectomy. Upon completion of surgery the patient was extubated and taken to the recovery room for further monitoring. Eventually he was admitted to 3 S. cardiac stepdown unit. The patient did have a small right-sided pneumothorax with continuous airleak postoperatively which was expected after her lobectomy, and on postoperative day #5 his chest tube was removed without incident, and the following morning his chest x-ray was stable. The patient did have some paroxysmal atrial fibrillation, although currently he is in normal sinus rhythm. His oxygen was titrated down, he was tolerating oral diet, his pain was controlled, and he was ready to be discharged to home on postoperative day #6. He received written and verbal instruction regarding his medications, activity restrictions, signs and symptoms requiring physician notification, and follow-up appointments. Plan - Discharge Summary Discharge Rx Participant: No New Discharge Prescriptions: New Amiodarone [Cordarone] 400 mg PO BID #35 tab Tamsulosin [Flomax] 0.4 mg PO PC-SUPPER #30 cap Acetaminophen Tab [Tylenol] 650 mg PO Q4HR PRN tab PRN Reason: Fever And/ Or Pain Continue Aspirin [Adult Low Dose Aspirin EC] 81 mg PO DAILY Propranolol HCl 80 mg PO QAM Primidone [Mysoline] 200 mg PO QAM Discharge Medication List Aspirin [Adult Low Dose Aspirin EC] 81 mg PO DAILY 03/18/24 [History] Primidone [Mysoline] 200 mg PO QAM 03/18/24 [History] Propranolol HCl 80 mg PO QAM 03/18/24 [History] Acetaminophen Tab [Tylenol] 650 mg PO Q4HR PRN tab 04/20/24 [Rx] Amiodarone [Cordarone] 400 mg PO BID #35 tab 04/20/24 [Rx] Tamsulosin [Flomax] 0.4 mg PO PC-SUPPER #30 cap 04/20/24 [Rx] Follow up Appointment(s)/Referral(s): Niharika Zhong MD [STAFF PHYSICIAN] - 05/02/24 10:45 am Maikol Sainz MD [Primary Care Provider] - 1 Week Meng Rivera MD [STAFF PHYSICIAN] - 04/28/24 9:45 am Activity/Diet/Wound Care/Special Instructions: DISCHARGE INSTRUCTIONS: 1. No driving for 2 weeks, or until physician gives their ok. 2. No lifting, pushing, or pulling more than 10 pounds for 2 weeks. The physician will advise of any restriction changes. 3. Continue pain control per as needed orders. Alternate acetaminophen (Tylenol) and ibuprofen (Motrin/Advil) for pain. 4. Continue with incentive spirometry and splinting until otherwise directed by the physician. 5. Leave chest tube dressing for 48 hours. After that, remove all dressings and shower daily. 6. Routine incision care. No powders, lotions, ointments on incisions. 7. Please call surgeon/SECURITY VEHICLE PATROL OFFICER for temp greater than 101 F or purulent drainage from incisions. 8. Smoking cessation counseling and program information provided. Quitting smoking is the most important step you can take to improve your health. For additional information and assistance to quit smoking, please call the [place] tobacco quit line (1-623-HIPT-NOW/ ) or online: [email or web address] Discharge Disposition: HOME SELF-CARE
--- NOTE | 2024-04-20 12:49 | P.PN ---
Subjective Progress Note Date: 04/20/24 68-year-old male patient with carcinoma of the right upper lobe. Patient is [id number] smoking history. He quit smoking in November 2023. He was found to have a pulmonary nodule in the right upper lobe for which she was undergoing serial CAT scan of the chest. Nodule is progressively getting larger in size and his most recent CAT scan of the chest that was done on 02/24/2024 showed that the right upper lobe pulmonary nodule is measuring 2.0 cm in size and has been enlarged compared to the earlier CAT scan from 07/20/2022 where it was measuring 1.4 cm. PET/CT that was done on 10/22/2023 showed uptake in the right upper lobe pulmonary nodule. Based on this, the patient underwent the robotic br onchoscopy and transbronchial biopsy of the right upper lobe pulmonary nodule and the findings were consistent with for adenocarcinoma. Right lower lobe transbronchial biopsy of a another nodule was inflammatory. Bronchial ultrasound and biopsy of station 11 R lymph node was negative for malignancy. Based on that, the patient was taken to the operating room and the patient underwent a right upper lobectomy and mediastinal lymph node dissection. The patient is currently in the intensive care unit. Postsurgical chest x-ray shows a right-sided chest tube in place along with a small to moderate-sized right apical pneumothorax. The patient continues to have some intermittent airleak. Nevertheless, the patient is hemodynamically stable. He is currently on 60s of oxygen by nasal cannula with a pulse ox of 99%. Pain is under adequate control. He is on clevidipine drip for blood pressure control is also on bronchodilators [id number]. 04/15/2024, the patient is postop day #1. The patient is doing well on room air oxygen. The patient underwent a robotic assisted thoracoscopic right upper lobe lobectomy in addition to mediastinal for dissection in addition to intercostal nerve block x 3 levels. The epidural bupivacaine and Dilaudid has been discontinued. Pain is under good control for now. Right-sided chest tube in place. There is positive air leak. Repeat chest x-ray shows adequate expansion of the right lung with a tiny right apical pneumothorax. He is using incentive spirometer and pulling approximately 2000. His blood pressure is stable. He is hemodynamically stable. Surgical wound site is dry clean and intact. The patient WBC count is at 10 with 12.1 platelet count of 214. BUN is at 12 with a creatinine of 0.7 and sodium of 132. Potassium level is at 4.5 and a calcium level is at 7.9. No other significant events overnight. Right-sided chest tube will be kept in place. Total amount of output has been 700 cc since arrival from the operating room. 04/16/2024, I am seeing the patient for a follow-up. The patient is doing well. No specific complaints. The patient is currently postop day #2. The follow-up chest x-ray from today shows no evidence of any significant pneumothorax. The chest tube was beneficial to waterseal. He is using incentive spirometer. Is putting approximately 2000. At the same time, the patient remains hemodyna mically stable. No significant respiratory distress. No cough or sputum production. Surgical wound site is dry clean and intact. The right-sided chest tube is drained approximately 600 cc over the past 24 hours and she will be kept in place. No other significant events overnight. WBC count of 12.6 with a hemoglobin 11.7 and a platelet count of 184. BUN is 12 with a creatinine of 0.7 and sodium levels at 129. No other significant events otherwise for now. On 04/17/2024, the patient is doing well. No specific complaints. Right-sided chest tube is essentially waterseal. There is some intermittent air leak still present. Chest x-ray from today shows a right-sided pneumothorax which is probably in the order of 10 to 20%. The patient however is feeling great. No specific complaints. Remains on room air oxygen with a pulse ox of 96%. Clinically stable. Hemodynamic stable. Obese, 11 hemoglobin of 11 and a platelet count of 194. Electrolytes are all within normal limits. Renal function is also within normal limits. The patient is postop day #3. Using incentive spirometer, pulling approximately 2500 without having any major difficulties. Will leave the Fall catheter in place. Flomax was also added. Cardiothoracic surgery consult on the case. 04/18/2024, the patient's chest tube was clamped. The morning chest x-ray showed no evidence of any acute pneumothorax. It showed postsurgical changes. After being capped, the repeat chest x-ray showed less than 10% pneumothorax on the right. The patient remains hemodynamically stable on room air oxygen. Afebrile. No nausea vomiting. No chest pain. The white cell count is 9.7 with a hemoglobin of 11.5 and a platelet count of 240. BUN is 18 with a creatinine of 0.8 and sodium levels at 134. No issues with pain. No other complaints otherwise for now. The patient is currently postop day #4. He was in the sinus parameter. Fall catheter still in place. On today's evaluation of 04/19/2024, the patient is being seen for a follow-up. The patient has no significant complaints. The patient is currently postop day #5. The right-sided chest tube has been clamped and the follow-up chest x-ray that was done today showed a 15% pneumothorax in the right apex post chest tube removal. Nevertheless, the patient remains clinically and hemodynamically stable. His pulse ox on room air is in order of 98%. He continues to use incentive spirometer. He is also on bronchodilators. He is ambulating. No other significant events overnight. No hypotension. No pleurisy. No hemoptysis. On today's evaluation of 04/20/2024, the patient is ambulating. No respiratory distress. A follow-up chest x-ray was done today and showed a tiny right apical pneumothorax. The patient has no specific complaints. No new labs elevated from today. No chest pain. Surgical wound site is dry clean and intact. Objective - Vital Signs Vital signs: Vital Signs Temp 98.0 F 04/20/24 08:24 Pulse 70 04/20/24 08:59 Resp 16 04/20/24 08:24 BP 151/77 04/20/24 08:24 Pulse Ox 100 04/20/24 08:46 FiO2 21 04/15/24 08:33 Intake & Output 04/19/24 04/20/24 04/20/24 18:59 06:59 18:59 Intake Total 1262 260 Output Total 450 Balance 1262 -190 Weight 68.9 kg Intake: IV 20 20 Invasive Line 2 20 20 Oral 1242 240 Output: Urine 450 Other: Voiding Method Toilet Toilet # Voids 2 ABP, PAP, CO, CI - Last Documented Arterial Blood Pressure 114/89 - Exam The patient appeared well nourished and normally developed. Vital signs as documented. The patient is currently on room air oxygen. Head exam was generally normal. There was no scleral icterus or corneal arcus. Mucous membranes were moist.. No scleral icterus or corneal arcus noted. Neck is without jugular venous distension, thyromegaly, or carotid bruits. Carotid ups trokes are brisk bilaterally. Lungs are clear to auscultation and percussion. Diminished breath sound right lung base and the patient has right-sided chest tube was removed. Cardiac exam reveals the PMI to be normally sized and situated. Rhythm is regular. First and second heart sounds normal. No murmurs, rubs or gallops. Abdominal exam reveals normal bowel sounds, no masses, no organomegaly and no aortic enlargement. Extremities are nonedematous and both femoral and pedal pulses are normal. Examination of the skin revealed no evidence of significant rashes, suspicious appearing nevi or other concerning lesions. Neurologically, the patient is awake and alert and the patient does not have any focal neurological deficit. Cranial nerves are essentially intact. - Labs CBC & Chem 7: 04/19/24 11:02 04/19/24 11:02 Labs: Abnormal Lab Results - Last 24 Hours (Table) 04/19/24 04/19/24 Range/Units 11:02 11:02 RBC 3.68 L (4.30-5.90) m/uL Hgb 10.9 L (13.0-17.5) gm/dL Hct 34.1 L (39.0-53.0) % Sodium 133 L (137-145) mmol/L Assessment and Plan Plan: Pulmonary adenocarcinoma, early stage with a 2.0 cm right upper lobe pulmonary nodule and pathology was confirmed by robotic bronchoscopy and biopsy. Endobronchial ultrasound and sampling of the mediastinal lymph nodes were negative for malignancy. The patient underwent a robotic assisted right upper lobe lobectomy and mediastinal lymph node dissection. The patient is currently postop day # 6 Acute hypoxic respiratory failure currently on room air oxygen Tiny apical right-sided pneumothorax post chest tube removal and the patient is clinically asymptomatic Hypertension History of essential tremors Plan Clinically and hemodynamically stable Oxygenation is stable currently on room air oxygen Incentive spirometer Chest tube removed Repeat another chest x-ray in the morning shows a tiny right apical pneumothorax Aggressive pulmonary toileting Blood pressures under adequate control Flomax was not as and will keep the Fall catheter in place Will discharge home today to be followed up on outpatient basis
== END 2024-04-20 11:26 | disposition home or self-care (01) | DRG 163 ==
LOC: 2ORMAIN 10:17 → 2SICU 15:49 → 3SCARD 04-16 17:34
PROVIDERS: ADMIT Thoracic Surgery (Cardiothoracic Vascular Surgery); ATTEND Thoracic Surgery (Cardiothoracic Vascular Surgery)
PROC: 07B74ZZ Excision of Thorax Lymphatic, Percutaneous Endoscopic Approach (ICD-10-PCS; 2024-04-14)
PROC: 8E0W4CZ Robotic Assisted Procedure of Trunk Region, Percutaneous Endoscopic Approach (ICD-10-PCS; 2024-04-14)
PROC: 03HY32Z Insertion of Monitoring Device into Upper Artery, Percutaneous Approach (ICD-10-PCS; 2024-04-14)
PROC: 4A133B1 Monitoring of Arterial Pressure, Peripheral, Percutaneous Approach (ICD-10-PCS; 2024-04-14)
PROC: 4A133J1 Monitoring of Arterial Pulse, Peripheral, Percutaneous Approach (ICD-10-PCS; 2024-04-14)
PROC: 0BTC4ZZ Resection of Right Upper Lung Lobe, Percutaneous Endoscopic Approach (ICD-10-PCS; principal; 2024-04-14 12:00)
DX: C34.11 Malignant neoplasm of upper lobe, right bronchus or lung (principal); J96.01 Acute respiratory failure with hypoxia; E22.2 Syndrome of inappropriate secretion of antidiuretic hormone; J93.82 Other air leak; J93.9 Pneumothorax, unspecified; F17.200 Nicotine dependence, unspecified, uncomplicated; G25.0 Essential tremor; F12.10 Cannabis abuse, uncomplicated; I10 Essential (primary) hypertension; I48.0 Paroxysmal atrial fibrillation; Z79.82 Long term (current) use of aspirin; Z71.6 Tobacco abuse counseling
CPT/HCPCS: 71045; 71046; 80048; 80053; 83735; 85025; 85027; 86850; 86900; 86901; 86920; 88305; 88309; 94640; 94760

== ENCOUNTER → 2024-04-29 | Outpatient (CLI) | payer OTHER, MEDICARE ==
[2024-04-29 11:30] LABS: Basophils % (A) 1 %; Eosinophils # (A) 0.7 k/uL (0-0.7); Eosinophils % (A) 8 %; HCT 39.6 % (39.0-53.0); Hypochromasia Slight; Lymphocytes # (A) 1.5 k/uL (1.0-4.8); Lymphocytes % (A) 18 %; MCH 28.6 pg (25.0-35.0); MCHC 30.3 g/dL (31.0-37.0); MCV 94.3 fL (80.0-100.0); Mean Platelet Volume 9.1; Monocytes # (A) 0.5 k/uL (0-1.0); Monocytes % (A) 7 %; Neutrophils # (A) 5.1 k/uL (1.3-7.7); Neutrophils % (A) 64 %; RBC 4.19 m/uL (4.30-5.90); RDW 13.2 % (11.5-15.5)
[2024-04-29 11:32] LABS: Platelet Count 688 k/uL (150-450)
[2024-04-29 11:33] LABS: Partial Thromboplastin Time 26.7 sec (22.0-30.0)
[2024-04-29 15:04] LABS: Appearance,Urine Clear (Clear); Bilirubin,Urine Negative (Negative); Blood,Urine Negative (Negative); Color,Urine Yellow (Yellow); Ketones,Urine Negative (Negative); Nitrite,Urine Negative (Negative); PH, Urine 5.5; Specific Gravity,Urine 1.025 (1.001-1.030); Urobilinogen,Urine 0.2 E.U./DL
[2024-04-29 15:06] LABS: Prothrombin Time 10.7 sec (10.0-12.5)
[2024-04-29 15:21] LABS: Blood Urea Nitrogen 12.2 mg/dL (9.0-27.0); Carbon Dioxide 23.5 mmol/L (21.6-31.8); Chloride 102 mmol/L (96-109); Glucose 102 mg/dL (70-110); Potassium 4.5 mmol/L (3.5-5.5); Sodium 137 mmol/L (135-145)
== END | disposition home or self-care (01) ==
LOC: LABPAT 09:28
PROVIDERS: ATTEND Thoracic Surgery (Cardiothoracic Vascular Surgery)
DX: Z01.812 Encounter for preprocedural laboratory examination (principal); K43.2 Incisional hernia without obstruction or gangrene; R58 Hemorrhage, not elsewhere classified; Z79.899 Other long term (current) drug therapy
CPT/HCPCS: 80051; 81003; 82565; 82947; 84520; 85025; 85610; 85730; 86850; 86900; 86901; 87077; 87086; 87186

== ENCOUNTER 2024-05-02 05:35 | Day surgery (SDC) | payer OTHER, MEDICARE ==
[2024-05-02 06:20] LABS: Glucose,Whole Blood 99 mg/dL (70-110)
[2024-05-02] MEDS: IV FLUID CONTINUATION 1,000 ML IV ONE (06:22)
[2024-05-02] MEDS: DEXAMETHASONE SOD PHOSPHATE 4 MG/ML 1 ML VIAL IV ONE (06:26)
[2024-05-02] MEDS: LACTATED RINGERS 1,000 ML IV SCH (06:26)
[2024-05-02] MEDS: ONDANSETRON 4 MG/2 ML VIAL IVP ONE (06:26)
[2024-05-02] MEDS: fentaNYL (PF) 50 MCG/ML 2 ML AMP IVP ONE ×2 (06:55→07:26)
[2024-05-02] MEDS: MIDAZOLAM 2 MG/2 ML VIAL IVP ONE ×2 (06:55→07:04)
[2024-05-02] MEDS ORDERED: MIDAZOLAM 2 MG/2 ML VIAL IV PRN (07:00)
[2024-05-02] MEDS ORDERED: LIDOCAINE 1% INJ 10MG/ML (20 ML MDV) ONE (07:28)
[2024-05-02] MEDS ORDERED: ePHEDrine 50 MG/ML 1 ML VIAL ONE (07:28)
[2024-05-02] MEDS ORDERED: fentaNYL (PF) 50 MCG/ML 2 ML AMP ONE (07:28)
[2024-05-02] MEDS ORDERED: ROPIVACAINE 5 MG/ML 30 ML VIAL ONE (07:28)
[2024-05-02] MEDS ORDERED: GLYCOPYRROLATE 0.2 MG/ML 2 ML VIAL ONE (07:28)
[2024-05-02] MEDS ORDERED: SUCCINYLCHOLINE CHLORIDE 200 MG/10 ML VIAL IV ONE (07:28)
[2024-05-02] MEDS ORDERED: ROCURONIUM 10 MG/ML (5 ML VIAL) IV ONE (07:28)
[2024-05-02] MEDS ORDERED: NEOSTIGMINE 1 MG/ML 10 ML VIAL ONE (07:28)
[2024-05-02] MEDS ORDERED: PROPOFOL 10 MG/ML 20 ML VIAL IV ONE (07:28)
[2024-05-02] MEDS: BUPIVACAINE (PF) 0.5% 30 ML VIAL SQ ONE ×2 (08:17→08:41)
--- NOTE | 2024-05-02 09:09 | P.OP ---
Date of Procedure: 05/02/24 Preoperative Diagnosis: Incisional Hernia Right Upper Lobe NSCLC (Stage 1A) Postoperative Diagnosis: Same Procedure(s) Performed: 1. Bronchoscopy 2. Incisional hernia repair with Phasix ST mesh 3. Intercostal nerve block Implants: Phasix ST Mesh Anesthesia: MEKAA Surgeon: Meng Rivera Actuary Clerk #1: Rickey Hanna Estimated Blood Loss (ml): 10 Pathology: none sent Condition: stable Disposition: PACU Indications for Procedure: This patient is a 68 year-old M s/p recent robotic assisted right upper lobectomy for for Stage 1A NSCLC. Post-operatively he developed a bulge at the extraction site consistent with incisional hernia with lung herniation. I recommended repair. Operative Findings: Intercostal muscle . Suture unraveled. Muscle quality thin. Description of Procedure: The patient underwent arterial line placement in the pre-operative suite. He was brought back to the operating room and placed in the supine position. He underwent general anesthesia and was intubated with a 39F double lumen tube. Bronchoscopy was performed to to check tube placement and for diagnostic purposes. His right upper lobe stump was pink and healthy. No other abnormalities of the tracheo-bronchial tree were present. The patient was then positioned in the left lateral decubitus position and his right chest was prepped and draped in the usual sterile fashion. His right lung was isolated. I re-entered the chest via the previous incision (extraction site). The muscle was clearly here and the suture had unraveled. The muscle was of thin quality. The area was debrided. A 19F moose was placed into the pleural cavity via small incision inferior to the hernia space. A phasix ST mesh was then cut to size. Eight 0-Ethibond sutures were placed circumferentially around the mesh. Next a bone drill was used to drill holes in the rib above and below the hernia. The cher dale suture passer was used to thread one end of the suture through the rib and the other end of the suture was passed through the muscle above each respective rib using the cher dale suture passer. The home hospice aide sutures were just passed through viable muscle. These were tied down and the underlay mesh appeared to be in great position. Next, the intercostal muscle was loosely approximated using 0-vicryl suture. Intercostal nerve block was performed using 0.5% marcaine. Next the muscle over the rib was closed with 0- vicryl. Deep dermis was closed with 2-0 vicryl and skin closed with 4-0 monocryl and glue. Patient was extubated at the end of the procedure.
[2024-05-02] MEDS: HYDROmorphone 0.5 MG/0.5 ML SYRINGE IVP PRN (09:25)
--- NOTE | 2024-05-02 09:53 | XR ---
EXAMINATION TYPE: XR chest 1V portable DATE OF EXAM: 05/02/2024 9:48 AM CLINICAL INDICATION:Male, 68 years old with history of Postop incisional hernia repair; [facility] COMPARISON: Chest radiographs from 04/20/2024. TECHNIQUE: XR chest 1V portable Frontal view of the chest. FINDINGS: Lungs/Pleura: There is no evidence of pleural effusion, focal consolidation, or pneumothorax. Pulmonary vascularity: Unremarkable. Heart/mediastinum: Cardiomediastinal silhouette is unremarkable. Musculoskeletal: No acute osseous pathology. IMPRESSION: No acute cardiopulmonary disease/process. No pneumothorax appreciated.
[2024-05-02] MEDS ORDERED: bisacodyL 10 MG SUPP RECTAL PRN (10:11)
[2024-05-02] MEDS ORDERED: METOCLOPRAMIDE 5 MG/ML 2 ML VIAL IVP PRN (10:11)
[2024-05-02] MEDS ORDERED: IPRATROPIUM-ALBUTEROL 3 ML NEB IH PRN (10:11)
[2024-05-02] MEDS: KETOROLAC 15 MG/ML 1 ML VIAL IVP SCH (10:55)
[2024-05-02] MEDS: ACETAMINOPHEN TAB 325 MG TAB PO PRN (10:56)
--- NOTE | 2024-05-02 11:44 | P.ANPRN ---
Procedure Note - Anesthesia - Nerve Block Performed Right Erector Spinae Single Time Out Performed: Yes ([id number]) Date of Procedure: 05/02/24 Procedure Start Time: 06:55 Procedure Stop Time: 06:59 Location of Patient: PreOp Indication: Acute Post-Operative Pain, Requested by Surgeon Specifically requested for management of pain by DrJabier: Meng Rivera Sedation Type: Sedate with meaningful contact maintained Preparation: Sterile Prep Position: Supine Catheter: None Needle Types: Pajunk Needle Gauge: 21 Ultrasound used to visualize needle placement: Yes Ultrasound used to observe medication spread: Yes Injectate: 0.5% Ropivacaine (see comment for volume) (30cc) Blood Aspirated: No Pain Paresthesia on Injection Noted: No Resistance on Injection: Normal Image Stored and Saved: Yes Events: Uneventful and Well Tolerated
[2024-05-02] MEDS: IPRATROPIUM-ALBUTEROL 3 ML NEB IH SCH (11:57)
--- NOTE | 2024-05-02 14:35 | XR ---
EXAMINATION TYPE: XR chest 2V DATE OF EXAM: 05/02/2024 1:54 PM CLINICAL INDICATION:Male, 68 years old with history of Postoperative incisional hernia repair; [facility] COMPARISON: Chest radiographs from 05/02/2024. TECHNIQUE: XR chest 2V Frontal and lateral views of the chest. FINDINGS: Lungs/Pleura: There is no evidence of pleural effusion, focal consolidation, or pneumothorax. Pulmonary vascularity: Unremarkable. Heart/mediastinum: Cardiomediastinal silhouette is unremarkable. Musculoskeletal: No acute osseous pathology. Other findings: None Lines/Tubes: Right thoracotomy tube is present without evidence of pneumothorax. IMPRESSION: No acute cardiopulmonary disease/process.
[2024-05-02] MEDS: HEPARIN SODIUM,PORCINE 5,000 UNIT/ML 1 ML VIAL SQ SCH (16:40)
[2024-05-02] MEDS: TAMSULOSIN 0.4 MG CAP.ER.24H PO SCH (16:53)
[2024-05-02] MEDS: traMADol 50 MG TAB PO SCH (16:53)
[2024-05-02] MEDS ORDERED: traMADol 50 MG TAB PO PRN (17:52)
[2024-05-02] MEDS: ACETAMINOPHEN TAB 500 MG TAB PO PRN (20:01)
[2024-05-02] MEDS: FORMOTEROL FUMARATE 20 MCG/2 ML NEBU INHALATION SCH (21:33)
[2024-05-03 04:11] VITALS: RESP 16
--- NOTE | 2024-05-03 05:45 | XR ---
EXAMINATION TYPE: XR chest 1V portable DATE OF EXAM: 05/03/2024 COMPARISON: Prior chest x-ray one day earlier HISTORY: Status post incisional hernia repair TECHNIQUE: Single AP portable frontal upright view of the chest is obtained. FINDINGS: Persistent right basilar chest tube with patchy right lower lung opacity. Left lung remain s clear. The cardiac silhouette size is within normal limits. The osseous structures are intact. IMPRESSION: Persistent right-sided chest tube without pneumothorax. Persistent right lower lung acut e infiltrate and/or atelectasis. No significant change from most recent study.
[2024-05-03 06:31] LABS: Basophils % (A) 0 %; Eosinophils # (A) 0.3 k/uL (0-0.7); Eosinophils % (A) 3 %; HCT 36.8 % (39.0-53.0); HGB 11.7 gm/dL (13.0-17.5); Lymphocytes # (A) 1.4 k/uL (1.0-4.8); Lymphocytes % (A) 14 %; MCH 29.7 pg (25.0-35.0); MCHC 31.9 g/dL (31.0-37.0); Mean Platelet Volume 7.4; Monocytes # (A) 0.7 k/uL (0-1.0); Monocytes % (A) 7 %; Neutrophils # (A) 7.8 k/uL (1.3-7.7); Neutrophils % (A) 74 %; Platelet Count 523 k/uL (150-450); RBC 3.96 m/uL (4.30-5.90); RDW 13.1 % (11.5-15.5); WBC 10.5 k/uL (3.8-10.6)
[2024-05-03 06:36] LABS: African American GFR (CKD) >90 (>60 ml/min/1.73 sqM); Anion Gap 7 mmol/L; Blood Urea Nitrogen 20 mg/dL (9-20); Carbon Dioxide 26 mmol/L (22-30); Chloride 100 mmol/L (98-107); Glucose 97 mg/dL (74-99); Non-African American GFR(CKD) 89 (>60 ml/min/1.73 sqM); Potassium 4.2 mmol/L (3.5-5.1); Sodium 133 mmol/L (137-145)
--- NOTE | 2024-05-03 08:16 | P.DS ---
Providers Date of admission: FINAL DIAGNOSIS: Incisional Hernia Lung nodule positive for non-small cell lung carcinoma stage Ia, status post bro nchoscopy, right assisted thorascopic right upper lobectomy, mediastinal lymph node dissection History of hypertension Essential tremors Previous tobacco dependence, quit smoking cigarettes 3 years ago, quit vaping 3 weeks ago Marijuana use Postoperative right-sided pneumothorax with continuous airleak, somewhat expected after lobectomy Paroxysmal atrial fibrillation, currently in sinus History of urine retention, on Flomax PRINCIPAL PROCEDURE: 1. Bronchoscopy 2. Incisional hernia repair with Phasix ST mesh 3. Intercostal nerve block HISTORY OF PRESENT ILLNESS: This patient is a 68 year-old gentleman status post recent robotic assisted right upper lobectomy for for Stage 1A NSCLC. Post- operatively he developed a bulge at the extraction site consistent with incisional hernia with lung herniation. He was seen and examined by Dr. Rivera and was recommended to undergo and incisional hernia repair. Risks and benefits of surgery were discussed with the patient and knowing and understanding the risks the patient wished to proceed with the surgical procedure. HOSPITAL COURSE: The patient was brought to the hospital on 05/02/24, taken to the preoperative area, prepared in the usual fashion, and subsequently taken to the operating room where Dr. Rivera performed Incisional hernia repair with Phasix ST mesh. Upon completion of surgery the patient was extubated and taken to the recovery room for further monitoring. Eventually he was admitted to 3 S. cardiac stepdown unit. The patient did have a chest tube in place and on postoperative day #1 after review of his chest x-ray by Dr. Rivera his chest tube was removed without incident. His oxygen was titrated down, he was tolerating oral diet, his pain was controlled, and he was ready to be discharged to home on postoperative day #1. He has received written and verbal instruction regarding his medications, activity restrictions, signs and symptoms requiring physician notification, and follow-up appointments. Attending physician: Meng Rivera MD Primary care physician: aCrlos Sainz Plan - Discharge Summary Discharge Rx Participant: No New Discharge Prescriptions: New traMADol HCl [Ultram] 50 mg PO QID #12 tab Continue Aspirin [Adult Low Dose Aspirin EC] 81 mg PO DAILY Tamsulosin [Flomax] 0.4 mg PO PC-SUPPER #30 cap Acetaminophen Tab [Tylenol] 650 mg PO Q4HR PRN tab PRN Reason: Fever And/ Or Pain Amiodarone [Cordarone] 200 mg PO DAILY Propranolol HCl 80 mg PO QAM Primidone [Mysoline] 200 mg PO QAM Discharge Medication List Aspirin [Adult Low Dose Aspirin EC] 81 mg PO DAILY 03/18/24 [History] Primidone [Mysoline] 200 mg PO QAM 03/18/24 [History] Propranolol HCl 80 mg PO QAM 03/18/24 [History] Acetaminophen Tab [Tylenol] 650 mg PO Q4HR PRN tab 04/20/24 [Rx] Tamsulosin [Flomax] 0.4 mg PO PC-SUPPER #30 cap 04/20/24 [Rx] Amiodarone [Cordarone] 200 mg PO DAILY 04/30/24 [History] traMADol HCl [Ultram] 50 mg PO QID #12 tab 05/03/24 [Rx] Follow up Appointment(s)/Referral(s): Niharika Zhong MD [STAFF PHYSICIAN] - 1 Week Meng Rivera MD [STAFF PHYSICIAN] - 1 Week Maikol Sainz MD [Primary Care Provider] - 1 Week Activity/Diet/Wound Care/Special Instructions: DISCHARGE INSTRUCTIONS: 1. No driving for 2 weeks, or until physician gives their ok. 2. No lifting, pushing, or pulling more than 10 pounds for 2 weeks. The physician will advise of any restriction changes. 3. Continue pain control per as needed orders. Alternate acetaminophen (Tylenol) and ibuprofen (Motrin/Advil) for pain. 4. Continue with incentive spirometry and splinting until otherwise directed by the physician. 5. Leave chest tube dressing for 48 hours. After that, remove all dressings and shower daily. 6. Routine incision care. No powders, lotions, ointments on incisions. 7. Please call surgeon/[facility] for temp greater than 101 F or purulent drainage from incisions. 8. Smoking cessation counseling and program information provided. Quitting smoking is the most important step you can take to improve your health. For additional information and assistance to quit smoking, please call the [place] tobacco quit line (0-464-GPTX-NOW/ ) or online: [email or web address] t-tobacco Discharge Disposition: HOME SELF-CARE
[2024-05-03] MEDS: PROPRANOLOL 40 MG TAB PO SCH (09:55)
[2024-05-03] MEDS: PRIMIDONE 50 MG TAB PO SCH (09:56)
[2024-05-03] MEDS: ASPIRIN 81 MG PO SCH (09:56)
[2024-05-03] MEDS: AMIODARONE 200 MG TAB PO SCH (09:56)
[2024-05-03 12:47] VITALS: BP 115/74; PULSE 66; TEMP 97.9
== END 2024-05-03 12:18 | disposition home or self-care (01) ==
LOC: OR 05:35 → 3SCARD 08:55 → OR 05-03 12:18
PROVIDERS: ATTEND Thoracic Surgery (Cardiothoracic Vascular Surgery)
DX: K43.2 Incisional hernia without obstruction or gangrene (principal); C34.11 Malignant neoplasm of upper lobe, right bronchus or lung; G25.0 Essential tremor; G89.18 Other acute postprocedural pain; I10 Essential (primary) hypertension; I48.0 Paroxysmal atrial fibrillation; J95.811 Postprocedural pneumothorax; Z79.82 Long term (current) use of aspirin; Z87.891 Personal history of nicotine dependence; Z98.890 Other specified postprocedural states; Z79.899 Other long term (current) drug therapy
CPT/HCPCS: 94640 ×4; 64999; 80048; 85025; 71045 ×2; 71046; 49591; 31622; C2618; J2250; J1644 ×2; J1100; J0690; J2405; J3010; J1885 ×2; J1170; J0665

== ENCOUNTER → 2025-01-12 | Outpatient (CLI) | payer OTHER ==
[2025-01-12 09:40] LABS: African American GFR (CKD) >90 (>60 ml/min/1.73 sqM); Blood Urea Nitrogen 15 mg/dL (9-20); Non-African American GFR(CKD) >90 (>60 ml/min/1.73 sqM)
--- NOTE | 2025-01-12 11:52 | CT ---
EXAMINATION TYPE: CT chest w con DATE OF EXAM: 01/12/2025 COMPARISON: Chest CT March 20, 2024 and older CTs. CLINICAL INDICATION: Male, 69 years old with history of C34.11 LUNG CANCER, Follow up for hx of lung CA. TECHNIQUE: CT scan of the thorax is performed following with IV Contrast, patient injected with 100 ml mL of Isovue 300. CT DLP: 237.4 mGycm. Automated Exposure Control for Dose Reduction was Utilized. FINDINGS: LUNGS: Moderate underlying emphysematous change is redemonstrated. Interval resolution of masslike co nsolidation. New right lung surgical changes with right-sided volume loss and mediastinal shift. Ther e is new mild linear scarring in the right lower lung with change in position of prior seen 12 mm pos terior pulmonary nodule now seen more laterally axial image 40. Stable tiny 2 mm nodule in the periph josé miguel of the left upper lobe axial image 11. Persistent reticulation in the periphery of the anterior l eft midlung. No new greater than 5 mm pulmonary nodules or masses. HEART: Size within normal limits. No significant coronary artery calcifications. MEDIASTINUM: There are no greater than 1 cm hilar or mediastinal lymph nodes. No pericardial effusi on is seen. OTHER: No additional significant abnormality is seen. IMPRESSION: Moderate underlying emphysematous change redemonstrated. Interval surgical change to the right lung with new right-sided volume loss. Stable 12 mm lower lobe right-sided pulmonary nodule. No new or enlarging greater than 5 mm pulmonary nodules bilaterally. [facility], , 01/12/2025 11:50 AM
== END | disposition home or self-care (01) ==
LOC: RADCTMAIN 08:55
PROVIDERS: ATTEND Internal Medicine
DX: C34.11 Malignant neoplasm of upper lobe, right bronchus or lung (principal); J43.9 Emphysema, unspecified; R91.1 Solitary pulmonary nodule
CPT/HCPCS: 82565; 84520; 71260; 36415; Q9967

== ENCOUNTER → 2025-06-04 | Outpatient (CLI) | payer OTHER, MEDICARE ==
[2025-06-04 16:36] LABS: African American GFR (CKD) >90 (>60 ml/min/1.73 sqM); Blood Urea Nitrogen 9 mg/dL (9-20); Non-African American GFR(CKD) >90 (>60 ml/min/1.73 sqM)
--- NOTE | 2025-06-04 21:09 | CT ---
EXAMINATION TYPE: CT chest w con DATE OF EXAM: 06/04/2025 5:06 PM COMPARISON: CT chest 01/12/2025. CLINICAL INDICATION: Male, 69 years old with history of R91.1 SOLITARY PULMONARY NODULE; PHH, RIGHT U PPER LOBE CA REMOVAL- 05/2024 RECHECK TECHNIQUE: Multiple axial images were obtained through the chest. Coronal reformats were created for review. Contrast used:100 ML mL of Isovue 300 with IV Contrast (None if empty) Oral contrast used: (None if empty) CT DLP: 388 mGycm, Automated exposure control for dose reduction was used. FINDINGS: LUNGS/ PLEURA: Redemonstrated are postsurgical changes involving the right lung with atelectatic eddy ges and scarring appreciated. There is stable appearance of the 11 mm solid round pulmonary nodule in the lateral aspect of the right lower lung. No new suspicious or enlarging pulmonary nodules again n oted are scattered central lobular and paraseptal emphysematous changes. No pleural effusion or pneum othorax.. AIRWAY: Patent and unremarkable. HEART: Size within normal limits. No significant coronary artery calcifications. MEDIASTINUM: Few nonenlarged lymph nodes are seen with no gross evidence of adenopathy. VASCULATURE: No aortic aneurysm. MUSCULOSKELETAL: No acute osseous abnormalities SOFT TISSUES/LYMPH NODES: Unremarkable. LOWER NECK: No significant findings. UPPER ABDOMEN: Tiny hyperenhancing focus noted in the liver capsule at the liver dome likely perfusio nal due to phase of contrast. IMPRESSION: Stable appearance of a 11 mm right lower lung solid pulmonary nodule. No new pulmonary masses or enla rging suspicious pulmonary nodules. Recommend 3 month short-term CT chest follow-up to assess for sta bility. Follow up recommendations for incidental pulmonary nodules, if there are any, are per [employer] or [employer]. [email or web address]?lang=us [facility], , 06/04/2025 9:07 PM
== END | disposition home or self-care (01) ==
LOC: RADCTMAIN 15:43
PROVIDERS: ATTEND Internal Medicine
DX: R91.1 Solitary pulmonary nodule (principal)
CPT/HCPCS: 82565; 84520; 71260; 36415; Q9967